=== PATIENT | female | born 1985 | race Hispanic/Latino ===

== ENCOUNTER 2018-02-12 13:53 | Emergency (ER) | payer BC, SELFPAY ==
[2018-02-12] MEDS ORDERED: ONDANSETRON 4 MG/2 ML VIAL ONE (14:39)
[2018-02-12] MEDS ORDERED: NA CHLORIDE 0.9% 1,000 ML ONE (14:39)
[2018-02-12] MEDS ORDERED: MORPHINE 4 MG/ML SYR ONE ×2 (14:39→15:48)
[2018-02-12] MEDS ORDERED: FAMOTIDINE 20 MG/2 ML VIAL IV ONE (14:39)
[2018-02-12 14:53] LABS: Absolute Lymphocytes (CBC) 1.1 K/uL (0.7-4.9); Absolute Monocytes 0.4 K/uL (0.1-1.3); Absolute Neutrophil 4.5 K/uL (1.8-8.0); Basophils % 0.2 % (0-1.3); Eosinophils % 0.2 % (0-4.4); Lymphocytes % 18.5 % (15.3-44.8); MCH 22.4 pg (27.0-35.0); MCV 71.7 fL (80-100); MPV 8.1 fL (7.6-11.3); Monocytes % 6.3 % (3.3-12.3); RBC Red Blood Cell Count 4.47 M/uL (3.86-4.86)
[2018-02-12 15:09] LABS: Bicarbonate 27 mEq/L (21-31); Glucose Level 119 mg/dL (65-120); Lipase 22 U/L (22-51); Potassium 3.9 mEq/L (3.6-5.0); Sodium Level 138 mEq/L (135-145)
[2018-02-12 15:16] LABS: ALT/SGPT 14 IU/L (10-60); AST/SGOT 25 IU/L (10-42); Albumin 4.1 g/dL (3.2-5.5); Alkaline Phosphatase 49 IU/L (42-121); Amylase Level 58 U/L (28-100); BUN Blood Urea Nitrogen 7 mg/dL (6-20); Bilirubin Direct 0.1 mg/dL (0-0.2); Bilirubin Total 0.4 mg/dL (0.3-1.2); Protein, Total 7.5 g/dL (6.0-8.3)
[2018-02-12 18:43] LABS: Urine Blood NEGATIVE (NEG); Urine Glucose NEGATIVE (NEG); Urine Protein NEGATIVE (NEG); Urine pH 6.5 (5.0-7.0)
[2018-02-12 18:44] LABS: Urine Bacteria <20 /HPF (<20); Urine Culture Reflex Order NOT NEEDED; Urine RBC NONE SEEN /HPF (NONE SEEN)
--- NOTE | 2018-02-12 19:02 | RAD REPORT ---
EXAM DESCRIPTION: CT - Abdomen Pelvis W Contrast - 02/12/2018 6:32 pm CLINICAL HISTORY: Right lower quadrant pain, nausea, prior cholecystectomy and gastric bypass COMPARISON: None. TECHNIQUE: Biphasic, helical CT imaging of the abdomen and pelvis was performed following 100 ml non -ionic IV contrast. Oral contrast was given. All CT scans are performed using dose optimization technique as appropriate and may include automated exposure control or mA/KV adjustment according to patient size. FINDINGS: No suspicious findings in the lung bases. No pericardial thickening or effusion. The liver, spleen, and pancreas show no suspicious findings. Cholecystectomy clips are present. No bi liary tree dilatation. Symmetric renal function is seen with no hydronephrosis or suspicious renal mass. No pyelonephritis o r acute renal parenchymal process seen. Urinary bladder is contracted. This limits detail. No bladder calculus seen. Uterus and ovaries show no suspicious findings. Gastric surgical changes are present. No gastric wall thickening, mass or edema. Oral contrast is pre sent in the distal small bowel and right side colon. No appendicitis findings. No free air or pneuma tosis. Free fluid in the cul-de-sac and right adnexa within limits of normal. No hernia, mass or bul ky lymphadenopathy. No adrenal abnormality. No suspicious bony findings. IMPRESSION: No appendicitis or other surgically emergent finding. Free fluid in the cul-de-sac is within physiologic limits, this could potentially be from a small hem orrhagic or leaking ovarian cyst not otherwise evident on this examination. No pyelonephritis or acute process. Cholecystectomy changes are present. Biliary tree within normal limits.
--- NOTE | 2018-02-12 19:12 | EDPHYS ---
Physician Documentation [facility] Name: Jesenia Claire Age: 32 yrs Sex: Female : 1985 Arrival Date: 02/12/2018 Time: 13:55 Bed 8 Private MD: ED Physician Natan Thrasher HPI: 02/12 15:45 This 32 yrs old Female presents to ER via Wheelchair with complaints of tyler Abdominal Pain. 15:45 The patient presents with abdominal pain in the epigastric area, in the upper abdomen. tyler Onset: The symptoms/episode began/occurred 1 day(s) ago. The patient presents to the emergency department with nausea, vomiting, abdominal pain, of the epigastric area, right upper quadrant and left upper quadrant. Onset: The symptoms/episode began/occurred 1 day(s) ago. Possible causes: unknown. The symptoms are aggravated by nothing. The symptoms are alleviated by nothing. Associated signs and symptoms: The patient has no apparent associated signs or symptoms. 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 - Social history:: Smoking status: Patient uses tobacco products, smokes one pack cigarettes per day. - Ebola Screening: : No symptoms or risks identified at this time. - Family history:: not pertinent. ROS: 15:45 Constitutional: Negative for fever, chills, and weight loss, Eyes: Negative for injury, tyler pain, redness, and discharge, ENT: Negative for injury, pain, and discharge, Neck: Negative for injury, pain, and swelling, Cardiovascular: Negative for chest pain, palpitations, and edema, Respiratory: Negative for shortness of breath, cough, wheezing, and pleuritic chest pain, Back: Negative for injury and pain, : Negative for injury, bleeding, discharge, and swelling, MS/Extremity: Negative for injury and deformity, Skin: Negative for injury, rash, and discoloration, Neuro: Negative for headache, weakness, numbness, tingling, and seizure, Psych: Negative for depression, anxiety, suicide ideation, homicidal ideation, and hallucinations, Allergy/Immunology: Negative for hives, rash, and allergies, Endocrine: Negative for neck swelling, polydipsia, polyuria, polyphagia, and marked weight changes, Hematologic/Lymphatic: Negative for swollen nodes, abnormal bleeding, and unusual bruising. 15:45 Abdomen/GI: Positive for abdominal pain, nausea, vomiting, and diarrhea, of the right upper quadrant, left upper quadrant, right lower quadrant and left lower quadrant. Exam: 15:45 Constitutional: This is a well developed, well nourished patient who is awake, alert, tyler and in no acute distress. Head/Face: Normocephalic, atraumatic. Eyes: Pupils equal round and reactive to light, extra-ocular motions intact. Lids and lashes normal. Conjunctiva and sclera are non-icteric and not injected. Cornea within normal limits. Periorbital areas with no swelling, redness, or edema. ENT: Nares patent. No nasal discharge, no septal abnormalities noted. Tympanic membranes are normal and external auditory canals are clear. Oropharynx with no redness, swelling, or masses, exudates, or evidence of obstruction, uvula midline. Mucous membranes moist. Neck: Trachea midline, no thyromegaly or masses palpated, and no cervical lymphadenopathy. Supple, full range of motion without nuchal rigidity, or vertebral point tenderness. No Meningismus. Chest/axilla: Normal chest wall appearance and motion. Nontender with no deformity. No lesions are appreciated. Cardiovascular: Regular rate and rhythm with a normal S1 and S2. No gallops, murmurs, or rubs. Normal PMI, no JVD. No pulse deficits. Respiratory: Lungs have equal breath sounds bilaterally, clear to auscultation and percussion. No rales, rhonchi or wheezes noted. No increased work of breathing, no retractions or nasal flaring. Back: No spinal tenderness. No costovertebral tenderness. Full range of motion. Female : Normal external genitalia. Skin: Warm, dry with normal turgor. Normal color with no rashes, no lesions, and no evidence of cellulitis. MS/ Extremity: Pulses equal, no cyanosis. Neurovascular intact. Full, normal range of motion. Neuro: Awake and alert, GCS 15, oriented to person, place, time, and situation. Cranial nerves II-XII grossly intact. Motor strength 5/5 in all extremities. Sensory grossly intact. Cerebellar exam normal. Normal gait. Psych: Awake, alert, with orientation to person, place and time. Behavior, mood, and affect are within normal limits. 15:45 Abdomen/GI: Inspection: abdomen appears normal, Bowel sounds: normal, Palpation: moderate abdominal tenderness, in all quadrants, Liver: no appreciated palpable abnormalities, Hernia: not appreciated. Vital Signs: 14:22 BP 162 / 103; Pulse 98; Resp 16; Temp 98.4; Pulse Ox 100% on R/A; Weight 86.18 kg; hb Height 5 ft. (152.40 cm); Pain 10/10; 14:45 BP 151 / 92; Pulse 74; Resp 18; Pulse Ox 99% on R/A; sv 15:37 BP 136 / 86; Pulse 69; Resp 17; Pulse Ox 100% on R/A; tw2 16:43 BP 139 / 80; Pulse 62; Resp 18; Pulse Ox 99% ; sv 17:29 BP 132 / 92; Pulse 59; Resp 17; Pulse Ox 100% on R/A; tw2 18:37 BP 156 / 98; Pulse 54; Resp 18; Pulse Ox 99% ; sv 19:40 BP 129 / 89; Pulse 6; Resp 18; Pulse Ox 100% on R/A; Pain 4/10; mg2 14:22 Body Mass Index 37.11 (86.18 kg, 152.40 cm) hb MDM: 14:29 Patient medically screened. [facility] 15:47 Data reviewed: vital signs, nurses notes, lab test result(s), radiologic studies, CT tyler scan, plain films. 02/12 14:30 Order name: Amylase, Serum; Complete Time: 15:34 02/12 14:30 Order name: Basic Metabolic Panel; Complete Time: 15:34 02/12 14:30 Order name: CBC with Diff; Complete Time: 15:34 02/12 14:30 Order name: Creatinine for Radiology; Complete Time: 15:34 02/12 14:30 Order name: Hepatic Function; Complete Time: 15:34 02/12 14:30 Order name: Lipase; Complete Time: 15:34 02/12 14:30 Order name: Urine Microscopic Only; Complete Time: 18:48 02/12 14:32 Order name: IV Saline Lock; Complete Time: 14:44 [facility] 02/12 14:32 Order name: Labs collected and sent; Complete Time: 14:44 [facility] 02/12 14:32 Order name: Urine Dipstick-Ancillary (obtain specimen); Complete Time: 18:11 [facility] 02/12 14:32 Order name: CT Abd/Pelvis - W/Contrast; Complete Time: 19:11 [facility] 02/12 18:03 Order name: Urine Dipstick--Ancillary (enter results); Complete Time: 18:48 ag 02/12 18:03 Order name: Urine --Ancillary (enter results); Complete Time: 18:48 ag Administered Medications: 14:35 Drug: NS 0.9% 1000 ml Route: IV; Rate: 1 bolus; Site: left antecubital; sv 16:00 Follow up: Response: No adverse reaction; IV Status: Completed infusion; IV Intake: tw2 1000ml 14:40 Drug: Zofran 4 mg Route: IVP; Site: left antecubital; tw2 15:00 Follow up: Response: No adverse reaction; Nausea is decreased tw2 14:40 Drug: Pepcid 20 mg Route: IVP; Site: left antecubital; tw2 15:49 Follow up: Response: No adverse reaction tw2 14:42 Drug: morphine 4 mg Route: IVP; Site: left antecubital; tw2 15:00 Follow up: Response: No adverse reaction; Pain is unchanged, physician notified tw2 15:49 Drug: morphine 4 mg Route: IVP; Site: left antecubital; tw2 16:43 Follow up: Response: No adverse reaction sv Disposition: 02/12/18 19:12 Discharged to Home. Impression: Abdominal tenderness, Vomiting, Anemia, unspecified. - Condition is Stable. - Discharge Instructions: Abdominal Pain, Adult, Anemia, Nonspecific, Nausea and Vomiting, Nausea and Vomiting, Digh-hi-Umga, Abdominal Pain, Adult, Ibxw-ki-[id number]. - Prescriptions for Pepcid 20 mg Oral Tablet - take 1 tablet by ORAL route every 12 hours for 10 days; 20 tablet. Tylenol- Codeine #3 300-30 mg Oral Tablet - take 2 tablet by ORAL route every 6 hours As needed; 30 tablet. Zofran 4 mg Oral Tablet - take 1 tablet by ORAL route every 12 hours As needed; 20 tablet. - Medication Reconciliation Form, Thank You Letter, Antibiotic Education, Prescription Opioid Use form. - Follow up: Private Physician; When: 2 - 3 days; Reason: Recheck today's complaints, Continuance of care, Re-evaluation by your physician. - Problem is new. - Symptoms have improved. Signatures: Dispatcher [employer] [facility] Jojo Pro RN RN Natan Cheng MD MD cha Baxter, Heather, RN RN Lora Cho RN RN tw2 Alden Polo RN RN mg2 Corrections: (The following items were deleted from the chart) 14:44 14:30 IV Saline Lock ordered. [facility] 14:44 14:30 Labs collected and sent ordered. [facility] 14:44 14:30 Urine Dipstick-Ancillary ordered. [facility] 15:35 14:32 Creatinine for Radiology+C.LAB.BRZ ordered. [facility] 15:35 14:32 UA MICROSCOPIC+U.LAB.BRZ ordered. [facility] 15:36 14:32 AMYLASE, SERUM+C.LAB.BRZ ordered. [facility] 15:36 14:32 BASIC METABOLIC PANEL+C.LAB.BRZ ordered. [facility] 15:36 14:32 CBC+H.LAB.BRZ ordered. [facility] 15:36 14:32 HEPATIC FUNCTION+C.LAB.BRZ ordered. [facility] 15:36 14:32 LIPASE+C.LAB.BRZ ordered. [facility] 19:44 19:12 02/12/2018 19:12 Discharged to Home. Impression: Abdominal tenderness; Vomiting; mg2 Anemia, unspecified. Condition is Stable. Discharge Instructions: Abdominal Pain, Adult, Anemia, Nonspecific, Nausea and Vomiting, Nausea and Vomiting, Mgej-am-Ugck, Abdominal Pain, Adult, Jnoj-cq-Dqrg. Prescriptions for Pepcid 20 mg Oral Tablet - take 1 tablet by ORAL route every 12 hours for 10 days; 20 tablet, Tylenol-Codeine #3 300-30 mg Oral Tablet - take 2 tablet by ORAL route every 6 hours As needed; 30 tablet, Zofran 4 mg Oral Tablet - take 1 tablet by ORAL route every 12 hours As needed; 20 tablet. and Forms are Medication Reconciliation Form, Thank You Letter, Antibiotic Education, Prescription Opioid Use. Follow up: Private Physician; When: 2 - 3 days; Reason: Recheck today's complaints, Continuance of care, Re-evaluation by your physician. Problem is new. Symptoms have improved. tyler
--- NOTE | 2018-02-12 19:12 | ER ---
Nurse's Notes [facility] Name: Jesenia Claire Age: 32 yrs Sex: Female : 1985 Arrival Date: 02/12/2018 Time: 13:55 Bed 8 Private MD: Diagnosis: Abdominal tenderness;Vomiting;Anemia, unspecified Presentation: 02/12 14:20 Presenting complaint: Patient states: RLQ pain 10/10 and nausea that started yesterday. hb Transition of care: patient was not received from another setting of care. Onset of symptoms was February 11, 2018. Risk Assessment: Do you want to hurt yourself or someone else? Patient reports no desire to harm self or others. 14:20 Method Of Arrival: Wheelchair hb 14:20 Acuity: GAURI 3 hb 14:47 Initial Sepsis Screen: Does the patient meet any 2 criteria? Yes Does the patient have sv a suspected source of infection? No. Patient's initial sepsis screen is negative. Care prior to arrival: None. 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 - Social history:: Smoking status: Patient uses tobacco products, smokes one pack cigarettes per day. - Ebola Screening: : No symptoms or risks identified at this time. - Family history:: not pertinent. Screenin:43 Abuse screen: Denies threats or abuse. Denies injuries from another. Nutritional sv screening: No deficits noted. Tuberculosis screening: No symptoms or risk factors identified. Fall Risk None identified. Assessment: 14:32 General: Appears uncomfortable, Behavior is cooperative, appropriate for age. Pain: sv Complains of pain in right lower quadrant Pain currently is 10 out of 10 on a pain scale. Quality of pain is described as sharp, Pain began 1 day ago. Is continuous, Also complains of nausea. Neuro: Level of Consciousness is awake, alert, obeys commands, Oriented to person, place, time, situation, Moves all extremities. Full function Speech is normal. Respiratory: Respiratory effort is even, unlabored, Respiratory pattern is regular, symmetrical. GI: Abdomen is flat, Last meal was February 11, 2018. at 22:00. Reports nausea, vomiting. Derm: Skin is normal. Musculoskeletal: Range of motion: intact in all extremities. 15:37 Reassessment: Patient and/or family updated on plan of care and expected duration. Pain tw2 level reassessed. Patient is alert, oriented x 3, equal unlabored respirations, skin warm/dry/pink. pt c/o pain, provider notified, pt encouraged to drink at least half of the bottle of contrast Patient states symptoms have not improved. 16:30 Reassessment: Patient and/or family updated on plan of care and expected duration. Pain tw2 level reassessed. Patient is alert, oriented x 3, equal unlabored respirations, skin warm/dry/pink. Patient states symptoms have not improved. 17:29 Reassessment: No changes from previously documented assessment. Patient and/or family tw2 updated on plan of care and expected duration. Pain level reassessed. Patient is alert, oriented x 3, equal unlabored respirations, skin warm/dry/pink. 17:39 Reassessment: CT called per Dr. Thrasher to take patient now for scan. ss 18:36 Reassessment: No changes from previously documented assessment. Patient and/or family sv updated on plan of care and expected duration. Pain level reassessed. Patient is alert, oriented x 3, equal unlabored respirations, skin warm/dry/pink. Pt reports needing pain and nausea medication. Informed Dr Thrasher, will wait to see what CT results are. Vital Signs: 14:22 BP 162 / 103; Pulse 98; Resp 16; Temp 98.4; Pulse Ox 100% on R/A; Weight 86.18 kg; hb Height 5 ft. (152.40 cm); Pain 10/10; 14:45 BP 151 / 92; Pulse 74; Resp 18; Pulse Ox 99% on R/A; sv 15:37 BP 136 / 86; Pulse 69; Resp 17; Pulse Ox 100% on R/A; tw2 16:43 BP 139 / 80; Pulse 62; Resp 18; Pulse Ox 99% ; sv 17:29 BP 132 / 92; Pulse 59; Resp 17; Pulse Ox 100% on R/A; tw2 18:37 BP 156 / 98; Pulse 54; Resp 18; Pulse Ox 99% ; sv 19:40 BP 129 / 89; Pulse 6; Resp 18; Pulse Ox 100% on R/A; Pain 4/10; mg2 14:22 Body Mass Index 37.11 (86.18 kg, 152.40 cm) hb ED Course: 13:55 Patient arrived in ED. as 14:22 Triage completed. hb 14:23 Arm band placed on right wrist. hb 14:29 Natan Thrasher MD is Attending Physician. tyler 14:29 Jojo Pro, RN is Primary Nurse. sv 14:35 Patient has correct armband on for positive identification. Bed in low position. Call sv light in reach. Adult w/ patient. Pulse ox on. NIBP on. Door closed. Warm blanket given. Head of bed elevated. 14:35 Initial lab(s) drawn, by me, sent to lab. Inserted saline lock: 20 gauge in left sv antecubital area, using aseptic technique. Blood collected. Flushed left antecubital with 5 ml normal saline. 18:32 CT Abd/Pelvis - W/Contrast In Process Unspecified. EDMS 19:05 Report given to Twila RUTLEDGE and Marcus RUTLEDGE. sv 19:07 Primary Nurse role handed off by Jojo Pro, AAMIR sv 19:11 Alden Polo, RN is Primary Nurse. mg2 19:42 No provider procedures requiring assistance completed. IV discontinued, intact, mg2 bleeding controlled, No redness/swelling at site. Pressure dressing applied. Administered Medications: 14:35 Drug: NS 0.9% 1000 ml Route: IV; Rate: 1 bolus; Site: left antecubital; sv 16:00 Follow up: Response: No adverse reaction; IV Status: Completed infusion; IV Intake: tw2 1000ml 14:40 Drug: Zofran 4 mg Route: IVP; Site: left antecubital; tw2 15:00 Follow up: Response: No adverse reaction; Nausea is decreased tw2 14:40 Drug: Pepcid 20 mg Route: IVP; Site: left antecubital; tw2 15:49 Follow up: Response: No adverse reaction tw2 14:42 Drug: morphine 4 mg Route: IVP; Site: left antecubital; tw2 15:00 Follow up: Response: No adverse reaction; Pain is unchanged, physician notified tw2 15:49 Drug: morphine 4 mg Route: IVP; Site: left antecubital; tw2 16:43 Follow up: Response: No adverse reaction sv Intake: 16:00 IV: 1000ml; Total: 1000ml. tw2 Outcome: 19:12 Discharge ordered by . tyler 19:43 Discharged to home via wheelchair, with family. mg2 19:43 Condition: stable 19:43 Discharge instructions given to patient, family, Instructed on discharge instructions, follow up and referral plans. Demonstrated understanding of instructions, follow-up care, medications, Prescriptions given X 2. 19:44 Patient left the ED. mg2 Signatures: Dispatcher [employer] EDJojo Rice RN RN Natan Cheng MD MD cha Martinez, Amelia as Smirch, Shelby, RN RN ss Andie Oconnor RN RN Lora Cho RN RN tw2 Alden Polo RN RN mg2 Corrections: (The following items were deleted from the chart) 16:44 16:30 BP 139 / 80; Pulse 61bpm; Resp 17bpm; Pulse Ox 100% RA; tw2 tw2
[2018-02-12 20:47] VITALS: TEMP 98.4
[2018-02-12 20:56] VITALS: BP 129/89; O2SAT 100
== END 2018-02-12 19:44 | disposition home or self-care (01) ==
LOC: ER 13:53
DX: R11.10 Vomiting, unspecified (principal); D64.9 Anemia, unspecified; F17.210 Nicotine dependence, cigarettes, uncomplicated
CPT/HCPCS: 36415; 74177; 80048; 80076; 81003; 81015; 81025; 82150; 83690; 85025; 96361; 96374; 96375; 99284; J2405; J7030; Q9967

== ENCOUNTER 2020-03-09 09:40 | Emergency (ER) | payer SELFPAY, OTHER ==
[2020-03-09] MEDS ORDERED: ONDANSETRON 4 MG (ODT) TAB ONE (10:38)
[2020-03-09] MEDS ORDERED: HYDROCODONE/APAP 5/325 MG TAB ONE (10:38)
--- OUTSIDE RECORDS SUMMARY | 2020-03-09 11:26 | XMS REPORT | Clinical Summary ---
:1985 Author Organization [facility] Address [address] [place] [id number] Care Team Providers Name Role Phone Corinna Oates MD Primary Care Provider [phone] Allergies No Known Allergies Medications Medication Sig Dispensed Refills Start Date End Date Status acetaZOLAMIDE (DIAMOX One tab po qid 90 capsule 6 03/22/2018 Active SEQUELS) 500 mg capsule eletriptan (RELPAX) 20 Take 1 tablet 9 tablet 6 03/22/2018 Active MG tablet (20 mg total) by mouth once as needed for migraine. May repeat in 2 hours if unresolved. Do not exceed 80 mg in 24 hours. acetaZOLAMIDE (DIAMOX) Two bid 120 capsule 6 03/22/2018 Active 500 mg capsule Active Problems No known active problems Family History Medical History Relation Name Comments Sickle cell anemia Brother No Known Problems Father No Known Problems Mother Pancreatitis Sister Relation Name Status Comments Brother Father Alive Mother Alive Sister Social History Tobacco Use Types Packs/Day Years Used Date Never Assessed Sex Assigned at Date Recorded Not on file Job Start Date Occupation Industry Not on file Not on file Not on file Travel History Travel Start Travel End No recent travel history available. 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
--- OUTSIDE RECORDS SUMMARY | 2020-03-09 11:26 | XMS REPORT | Summary of Care ---
:1985 Author Organization [facility] Address [address] [place] [id number] Care Team Providers Name Role Phone Britton Hernandez [employer]RB[employer]ENEWAL MANAGER Primary Care Provider Reason for Visit Reason Comments Refill Request Encounter Details Date Type Department Care Team Description 01/06/2020 Refill [facility] Marika Solis, Refill Request [address] [facility] [place] [address] [phone] [place], [place] [address] [phone] Allergies No Known Allergiesdocumented as of this encounter (statuses as of 01/09/2020) Medications Medication Sig Dispensed Refills Start Date End Date Status acetaZOLAMIDE (DIAMOX Take 500 mg by 0 Active SEQUELS) 500 mg mouth 2 (two) capsuleIndications: times daily. Facial abscess MULTIVITAMIN Take by mouth. 0 A ctive ORALIndications: Facial abscess cyanocobalamin, vitamin Inject as 0 Active B-12, (B-12 COMPLIANCE directed weekly. INJECTION) NaCl 0.9% (NS) SolP 250 by IV Infusion 0 Active mL with iron sucrose route once now. 100 mg iron/5 mL Indications: SolnIndications: every every 3 months 3 months for anemia for anemia norethindrone 0.35 mg Take 1 tablet by 1 Package 2 05/20/2019 Active tabletIndications: mouth daily. Encounter for other contraceptive management ACYCLOVIR 400 mg TAKE 1 TABLET BY 21 tablet 0 07/22/2019 Active tabletIndications: MOUTH THREE TIMES Herpetic vulvovaginitis DAILY FOR 7 DAYS documented as of this encounter (statuses as of 01/09/2020) Active Problems Problem Noted Date Other secondary hypertension 05/20/2019 Overview: Intracranial hypertension currently on d iamox Well woman exam 05/20/2019 Contraceptive management 05/20/2019 Abnormal uterine bleeding 05/20/2019 Overview: Iron infusion q3 months History of anxiety 05/20/2019 Tobacco use disorder 05/20/2019 Pseudotumor cerebri syndrome 06/25/2017 Obesity, Class III, BMI 40-49.9 (morbid obesity) 06/25 documented as of this encounter (statuses as of 01/09/2020) Immunizations Name Administration Dates Next Due Meningococcal Vaccine 02/29/2012 Tdap 03/05/2010 documented as of this encounter Social History Tobacco Use Types Packs/Day Years Used Date Current Every Day Smoker Cigarettes 1 Sta rted: 05/20/2017 Smokeless Tobacco: Never Used Alcohol Use Drinks/Week oz/Week Comments Not Currently Sex Assigned at Date Recorded Not on file Job Start Date Occupation Industry Not on file Not on file Not on file Travel History Travel Start Travel End No recent travel history available. documented as of this encounter Last Filed Vital Signs Not on filedocumented in this encounter Plan of Treatment Health Maintenance Due Date Last Done Comments VARICELLA VACCINES (1 of 2 - 1984 2-dose childhood series) PNEUMOCOCCAL 0-64 YEARS 1989 COMBINED SERIES (1 of 1 - PPSV23) DTaP,Tdap,and Td Vaccines (2 03/05/2020 03/05/2010 - Td) INFLUENZA VACCINE (Season 06/20/2020 Postpo mona from 05/05/2020 Ended) (Refused) PAP SMEAR 06/20/2022 06/20/2019, 04/04/2017 documented as of this encounter Results Not on filedocumented in this encounter Visit Diagnoses Diagnosis Vaginal itching Pruritus of genital organs documented in this encounter Insurance Payer Benefit Plan Subscriber ID Effective Phone Address Typ e / Group Dates [facility] [place] [id number] xxxxxxxxx 2019-Prese [phone] Medicaid WOMEN nt [address] [place] [address] documented as of this encounter Advance Directives Name Relationship Healthcare Agent Relationship Co mmunication Iveth Navarrete Mother [facility] agent ([place])
--- OUTSIDE RECORDS SUMMARY | 2020-03-09 11:26 | XMS REPORT | Continuity of Care Document ---
:1985 Author Organization [facility] t Address [address] [place] [address] Care Team Providers Name Role Phone Иван BRADLEY Primary Care Physician Jose C Castorena Attending Clinician Problems This patient has no known problems. Allergies, Adverse Reactions, Alerts This patient has no known allergies or adverse reactions. Family History Family Member Diagnosis Comments Start Date Stop Date Source Natural brother Sickle cell anemia H yomi Catholic Natural father No Known Problems Gail Bowden Natural mother No Known Problems Gail Bowden Natural sister [facility] Social History Social Habit Start Date Stop Date Quantity Comments Source Sex Assigned At Gail Bowden Medications Ordered Filled Start Stop Current Ordering Indication Dosage Frequency Signature Comments Components Source Medication Medication Date Date Medication? Clinician (SIG) Name Name acetaZOLAMI Yes One tab po Montiel ANASTACIA (DIAMOX 7-19 qid Methodi SEQUELS) 00:00: st 500 mg 00 capsule eletriptan Yes 20mg Take 1 [place] on (RELPAX) 20 7-19 tablet (20 Me thodi MG tablet 00:00: mg total) st 00 by mouth once as needed for migraine. May repeat in 2 hours if unresolved . Do not exceed 80 mg in 24 hours. acetaZOLAMI Yes Two bid Gail jhon DE (DIAMOX) 7-19 Methodi 500 mg 00:00: st capsule 00 Procedures This patient has no known procedures. Plan of Care Planned Activity Planned Date Details Comments Source Future Scheduled 2020-04-04 INFLUENZA VACCINE [place] [facility] Test 00:00:00 [code = INFLUENZA VACCINE] Future Scheduled 2004 Screening for Montiel Me [facility] Test 00:00:00 malignant neoplasm of cervix (procedure) [code = 858800529] Encounters Start End Encounter Admission Attending Care Care Encounter Source Date/Time Date/Time Type Type Clinicians Facility Department ID 2020-03-09 2020-03-09 [facility] [id number] 00:00:00 00:00:00 Marika Woodall SPORTS STATISTICIAN [id number] REGIONAL [id number] MATERNAL [id number] & CHILD [address] [place] [address] Results This patient has no known results.
--- OUTSIDE RECORDS SUMMARY | 2020-03-09 11:27 | XMS REPORT | Summary of Care ---
:1985 Author Organization [facility] Address [address] [place] [address] Care Team Providers Name Role Phone Britton Hernandez Primary Care Provider Reason for Visit Reason Comments Appointment Encounter Details Date Type Department Care Team Description 03/03/2020 Telephone [facility]- A Britton Jonas FNP Appointment [address] [facility] [address] [place] [address] [place] [address] [phone] Allergies No Known Allergiesdocumented as of this encounter (statuses as of 03/03/2020) Medications Medication Sig Dispensed Refills Start Date [...] TAKE 1 TABLET BY 21 tablet 0 03/03/2020 Active tabletIndications: MOUTH THREE TIMES Herpetic vulvovaginitis DAILY FOR 7 DAYS documented as of this encounter (statuses as of 03/03/2020) Active Problems Problem Noted Date Other secondary hypertension 05/20/2019 Overview: Intracranial hypertension currently on d iamox Well woman exam 05/20/2019 Contraceptive management 05/20/2019 Abnormal uterine bleeding 05/20/2019 Overview: Iron infusion q3 months History of anxiety 05/20/2019 Tobacco use disorder 05/20/2019 Pseudotumor cerebri syndrome 06/25/2017 Obesity, Class III, BMI 40-49.9 (morbid obesity) 06/25 documented as of this encounter (statuses as of 03/03/2020) Immunizations Name Administration Dates Next Due Meningococcal Vaccine 02/29/2012 TDAP 03/05/2010 documented as of this encounter Social [...] filedocumented in this encounter Plan of Treatment Date Type Specialty Care Team Description 03/05/2020 Office Visit [facility] Satell[facility] [address] [place], [place] [address] [phone] Health Maintenance Due Date Last Done Comments VARICELLA VACCINES (1 of 2 - 1984 2-dose childhood series) PNEUMOCOCCAL 0-64 YEARS 1989 COMBINED SERIES (1 of 1 - PPSV23) DTaP,Tdap,and Td Vaccines (2 03/05/2020 03/05/2010 - Td) Depression Screening 06/20/2020 06/20/2019, 05/20/2019 INFLUENZA VACCINE (Season 06/20/2020 Postpo mona from 05/05/2020 Ended) (Refused) PAP SMEAR 06/20/2022 06/20/2019, 04/04/2017 documented as of this encounter Results Not on filedocumented in this encounter Insurance Payer Benefit Plan Subscriber ID Effective Phone Address Typ e / Group Dates [facility] xxxxxxxxx 2019-Prese [phone] [address] Medicaid WOMEN nt [address] [place] [address] documented as of this encounter Advance Directives Name Relationship Healthcare Agent Relationship Co mmunication Iveth Navarrete Mother First [facility] agent (Mobile)
--- OUTSIDE RECORDS SUMMARY | 2020-03-09 11:27 | XMS REPORT | Summary of Care ---
:1985 Author Organization [facility] Address [address] [place] [address] Care Team Providers Name Role Phone Britton Hernandez SWAMPER Primary Care Provider Reason for Visit Reason Comments Refill Request Encounter Details Date Type Department Care Team Description 01/25/2020 Refill [facility]- A Marika Solis, Refill Request [address] [facility] [place] [address] [address] [phone] [place], [place] [address] [phone] Allergies No Known Allergiesdocumented as of this encounter (statuses as of 01/28/2020) Medications Medication Sig Dispensed Refills Start Date End Date Status acetaZOLAMIDE Take 500 mg by 0 A ctive (DIAMOX SEQUELS) 500 mouth 2 (two) mg times daily. capsuleIndications: Facial abscess MULTIVITAMIN Take by 0 Active ORALIndications: mouth. Facial abscess cyanocobalamin, Inject as 0 Act lesley vitamin B-12, (B-12 directed COMPLIANCE weekly. INJECTION) NaCl 0.9% (NS) SolP by IV Infusion 0 Active 250 mL with iron route once sucrose 100 mg now. iron/5 mL Indications: SolnIndications: every 3 months every 3 months for for anemia anemia norethindrone 0.35 Take 1 tablet 1 Package 2 05/20/2019 Active mg by mouth tabletIndications: daily. Encounter for other contraceptive management ACYCLOVIR 400 mg TAKE 1 TABLET 21 tablet 0 01/28/2020 Active tabletIndications: BY MOUTH THREE Herpetic TIMES DAILY vulvovaginitis FOR 7 DAYS ACYCLOVIR 400 mg TAKE 1 TABLET 21 tablet 0 07/22/2019 01/28/20 2 Discontinued tabletIndications: BY MOUTH THREE 0 Herpetic TIMES DAILY vulvovaginitis FOR 7 DAYS documented as of this encounter (statuses as of 01/28/2020) Active Problems Problem Noted Date Other secondary hypertension 05/20/2019 Overview: Intracranial hypertension currently on d iamox Well woman exam 05/20/2019 Contraceptive management 05/20/2019 Abnormal uterine bleeding 05/20/2019 Overview: Iron infusion q3 months History of anxiety 05/20/2019 Tobacco use disorder 05/20/2019 Pseudotumor cerebri syndrome 06/25/2017 Obesity, Class III, BMI 40-49.9 (morbid obesity) 06/25 documented as of this encounter (statuses as of 01/28/2020) Immunizations Name Administration Dates Next Due Meningococcal [...] filedocumented in this encounter Visit Diagnoses Diagnosis Herpetic vulvovaginitis documented in this encounter Insurance Payer Benefit Plan Subscriber ID Effective Phone Address Typ e / Group Dates [facility] xxxxxxxxx 2019-Prese [phone] [address] Medicaid [place]OMEN nt [id number] [place] [address] documented as of this encounter Advance Directives Name Relationship Healthcare Agent Relationship Co mmunication Iveth Navarrete Mother First [facility] agent (Mobile)
--- OUTSIDE RECORDS SUMMARY | 2020-03-09 11:27 | XMS REPORT | Summary of Care ---
:1985 Author Organization [facility] Address [address] [place] [address] Care Team Providers Name Role Phone Britton Hernandez COLOR MAKER DYER Primary Care Provider Reason for Visit Reason Comments CONTROL Encounter Details Date Type Department Care Team Description 03/05/2020 Office Visit [facility] RMCHP- AkinsiGary carrollMarika Enc ounter for other contraceptive management (Primary Dx); Mike C, WHCNP Vaginal discharge; [address] [facility] [address] Screen for STD (sexually transmitted dis ease) [facility] [place], [place] [phone] Allergies No Known Allergiesdocumented as of this encounter (statuses as of 03/06/2020) Medications Medication Sig Dispensed Refills Start Date [...] as of this encounter (statuses as of 03/06/2020) Active Problems Problem Noted Date Other secondary hypertension 05/20/2019 Overview: Intracranial hypertension currently on d iamox Well woman exam 05/20/2019 Contraceptive management 05/20/2019 Abnormal uterine bleeding 05/20/2019 Overview: Iron infusion q3 months History of anxiety 05/20/2019 Tobacco use disorder 05/20/2019 Pseudotumor cerebri syndrome 06/25/2017 Obesity, Class III, BMI 40-49.9 (morbid obesity) 06/25 documented as of this encounter (statuses as of 03/06/2020) Immunizations Name Administration Dates Next Due Meningococcal [...] of this encounter Last Filed Vital Signs Vital Sign Reading Time Taken Comments Blood Pressure 134/81 03/05/2020 4:09 PM CDT Pulse 79 03/05/2020 4:09 PM CDT Temperature 36.6 C (97.9 F) 03/05/2020 4:09 PM CDT Respiratory Rate 16 03/05/2020 4:09 PM CDT Oxygen Saturation - - Inhaled Oxygen Concentration - - Weight 74.8 kg (164 lb 14.4 oz) 03/05/2020 4:09 PM CDT Height 152.4 cm (5') 03/05/2020 4:09 PM CDT Body Mass Index 32.2 03/05/2020 4:09 PM CDT documented in this encounter Progress Notes Marika Patel, WHAUGUSTIN - 03/05/2020 3:45 PM CDT Chief complaint: Chief Complaint Patient presents with CONTROL HPI: the patient is here today with reports of vaginal discharge x1 week. She reports she used monistat otc for 1 day on last week , and reports her symptoms have improved but reports she noticed discharge on this morning. She denies all other associated symptoms today. She reports a new partner that she has been with for the past 6 months and she desires STI testing today. She reports her lmp as 6-3-20. Histories OB History Para Term AB Living 4 3 2 1 1 3 SAB TAB Ectopic Multiple Live Births 1 3 # Outcome Date GA Lbr Luke/2nd Weight Sex Delivery Anes PTL Lv 4 SAB 07/06/12 6w0d 3 Term 03/30/06 37w0d 5 lb 13 oz (2.637 kg) F Vag-Spont DAVID 2 07/13/04 32w0d 6 lb (2.722 kg) F DAVID 1 Term 10/26/01 36w0d 7 lb 2 oz (3.232 kg) M Vag-Spont DAVID Past Medical History: Diagnosis Date Abnormal uterine bleeding 2013 D&c x2, and many blood transfusions Anemia 2013 On iron infusions [id number] by Dr. Torres Anxiety 2006 Not on meds, followed Dr. Grullon Depression 2006 Not on meds, does not have MD HPV (human papilloma virus) infection 2012 Resolved per pt report Intracranial hypertension 2012 not on meds Other secondary hypertension 05/20/2019 Pap smear abnormality of cervix 2003 Dysplasia 2 Transfusion history 2012, 2013,2015 Urinary incontinence 2004 not on meds Family History Problem Relation Age of Onset Diabetes Mother Asthma Father High cholesterol Father Hypertension Father Arthritis Maternal Grandmother Heart Maternal Grandmother Diabetes Maternal Grandfather Family Status Relation Name Status Mo Alive Fa Alive MGMo Alive MGFa Alive Past Surgical History: Procedure Laterality Date ABDOMEN SURGERY PROC UNLISTED 2013 Gastric Bypass CHOLECYSTECTOMY 2013 COLPOSCOPY 2003 CONIZATION CERVIX,LOOP ELECTRD 2003 DILATION AND CURETTAGE (SHX) 2013 x2 for AUB GASTRIC BYPASS,OBESE<100CM ARIAN-EN-Y 2013 Social History Socioeconomic History Marital status: Spouse name: Not on file Number of children: Not on file Years of education: Not on file Highest education level: Not on file Occupational History Not on file Social Needs Financial resource strain: Not on file Food insecurity: Worry: Not on file Inability: Not on file Transportation needs: Medical: Not on file Non-medical: Not on file Tobacco Use Smoking status: Current Every Day Smoker Packs/day: 1.00 Types: Cigarettes Start date: 05/20/2017 Smokeless tobacco: Never Used Substance and Sexual Activity Alcohol use: Not Currently Drug use: Never Sexual activity: Not Currently Partners: Male control/protection: None Comment: Last intercourse 12/26/2018 Lifestyle Physical activity: Days per week: Not on file Minutes per session: Not on file Stress: Not on file Relationships Social connections: Talks on phone: Not on file Gets together: Not on file Attends mandaeism service: Not on file Active member of club or organization: Not on file Attends meetings of clubs or organizations: Not on file Relationship status: Not on file Intimate partner violence: Fear of current or ex partner: Not on file Emotionally abused: Not on file Physically abused: Not on file Forced sexual activity: Not on file Other Topics Concern Not on file Social History Narrative Patient lives with children, patient feels safe at home. Social History Substance and Sexual Activity Sexual Activity Not Currently Partners: Male control/protection: None Comment: Last intercourse 12/26/2018 Labs Labs are pending. Radiology No new radiology. Allergies Jesenia has No Known Allergies. Medications Jesenia has a current medication list which includes the following prescription(s): acyclovir, cyanocobalamin (vitamin b-12), NaCl 0.9% (NS) SolP 250 mL with iron sucrose 100 mg iron/5 mL Soln, norethindrone, acetazolamide, and multivitamin. Review of Systems Constitutional: Negative. HENT: Negative. Eyes: Negative. Respiratory: Negative. Breasts: Negative. Cardiovascular: Negative. Gastrointestinal: Negative. Genitourinary: Negative. Musculoskeletal: Negative. Skin: Negative. Neurological: Negative. Psychiatric/Behavioral: Negative. Endocrine: Endocrine negative BP 134/81 (BP Location: Right arm, Patient Position: Sitting, BP CUFF SIZE: Adult Medium) | Pulse 79 | Temp 36.6 C (97.9 F) (Oral) | Resp 16 | Ht 5' (1.524 m) | Wt 164 lb 14.4 oz (74.8 kg) | LMP 02/05/2020 (Exact Date) | BMI 32.20 kg/m Pregravid BMI: Could not be calculated Physical Exam Vitals reviewed. Constitutional: She is oriented to person, place, and time. She appears well- developed and well-nourished. Her body habitus is normal. Cardiovascular: Regular rate and rhythm. Pulmonary/Chest: Normal inspiratory effort. Neuro/Psychiatric: She has a normal mood and affect. She is oriented to person, place, and time. External genitalia: Normal external genitalia appropriate for age. Normal hair distribution. No labial lesion. Urethral meatus: Normal urethral meatus size, location and no lesion. No prolapse present. Normal urethral meatus Urethra: Normal urethra. No urethral tenderness, no mass and no urethral scarring palpated. Bladder: Bladder has no fullness, no mass palpated and no tenderness. Normal bladder Vagina:No lesion inspected. Normal estrogen effect. Normal support. Vaginal discharge found. Scant blood noted in vaginal canal Cervix: Normal cervix. No lesion. No tenderness and no discharge present. Uterus: Uterus is normal size, normal contour, normal position and non-tender. Normal uterus Adnexa: Right adnexa without tenderness, ovary enlargement or mass. Left adnexa without tenderness, ovary enlargement or mass. Normal left adnexa and normal right adnexa Assessment/Plan Return to clinic in 1 weeks. for nexplanon insert Return to clinic in 8 weeks for WWE or sooner as needed Encounter for other contraceptive management (primary encounter diagnosis) Comment: desires nexplanon Plan: return in 1 week Vaginal discharge Comment: as ordered Plan: POCT TEST, POCT URINALYSIS W/O SPECIFIC GRAVITY, GALV ONLY - VAGINAL PATHOGENS BY DNA PROBE, GC & CHLAMYDIA AMPLIFIED ASSAY Screen for STD (sexually transmitted disease) Comment: future ordered Plan: HIV 1/2 AG-AB WITH REFLEX This visit did not involve counseling and coordination that comprised more than 50% of the visit time. MARISA Jorge 03/05/2020 4:29 PM documented in this encounter Plan of Treatment Date Type Specialty Care Team Description 03/16/2020 Office Visit OB Gini Williamson WHCNP [address] [place], [place] [address] [phone] 05/22/2020 Office Visit OB Gini Williamson WHCNP [address] [place], [place] [address] [phone] Name Type Priority Associated Diagnoses Date/Ti me GALV ONLY - VAGINAL LAB Routine Vaginal discharge 10/2019 4:46 PM CDT PATHOGENS BY DNA PROBE GC & CHLAMYDIA AMPLIFIED LAB Routine Vaginal discharg e 03/05/2020 4:46 PM CDT ASSAY Name Type Priority Associated Diagnoses Order S chedule HIV 1/2 AG-AB WITH LAB Routine Screen for STD (sexual ly Expected: 03/09/2020, REFLEX transmitted disease) Expires : 03/05/2021 Health Maintenance Due Date Last Done Comments VARICELLA VACCINES (1 of 2 - 1984 2-dose childhood series) PNEUMOCOCCAL 0-64 YEARS 1989 COMBINED SERIES (1 of 1 - PPSV23) DTaP,Tdap,and Td Vaccines (2 03/05/2020 03/05/2010 - Td) Depression Screening 06/20/2020 06/20/2019, 05/20/2019 INFLUENZA VACCINE (#1) 2020 Postponed from 05/05/2020 (Refused) PAP SMEAR 06/20/2022 06/20/2019, 04/04/2017 documented as of this encounter Procedures Procedure Name Priority Date/Time Associated Diagnosis Comme nts POCT URINALYSIS W/O Routine 03/05/2020 Vaginal discharge Res ults for this SPECIFIC GRAVITY procedure a re in the results section . POCT TEST Routine 03/05/2020 Vaginal discharge Res ults for this procedure are i n the results section . documented in this encounter Results POCT URINALYSIS W/O SPECIFIC GRAVITY (03/05/2020) Pathologist Sig nature POCT PH U 5 5 - 8 mg/dl POCT U LEUK EST 2+ Negative - Negative POCT U NIT neg Negative - Negative POCT U PROT 30 Negative - Negative POCT U GLU normal Negative - Negative POCT U KETONE large Negative - Negative POCT U BLD 250 Negative - Negative Specimen Urine - URINE, CLEAN CATCH POCT TEST (03/05/2020) Pathologist Sig nature POCT PREG Negative On board controls acceptable Yes with C Line POCT PREG LOT # POCT PREG TEST DATE Specimen Urine - URINE, CLEAN CATCH documented in this encounter Visit Diagnoses Diagnosis Encounter for other contraceptive manage ment - Primary Vaginal discharge Leukorrhea, not specified as infective Screen for STD (sexually transmitted dis ease) Screening examination for venereal disea se documented in this encounter Insurance Payer Benefit Plan Subscriber ID Effective Phone Address Typ e / Group Dates [facility] xxxxxxxxx 2019-Prese [phone] [address] Medicaid WOMEN nt [address] [place] [address] documented as of this encounter Advance Directives Name Relationship Healthcare Agent Relationship Co mmunication Iveth Navarrete Mother First [facility] agent (Mobile) "
--- OUTSIDE RECORDS SUMMARY | 2020-03-09 11:27 | XMS REPORT | Summary of Care ---
:1985 Author Organization [facility] Address [address] [place] [address] Care Team Providers Name Role Phone Britton Hernandez GRID TRIMMER Primary Care Provider Reason for Visit Reason Comments Refill Request Encounter Details Date Type Department Care Team Description 03/03/2020 Refill [facility] RM[facility]P- A Marika Solis, Refill Request [address] [place] [address] [phone] [place], [place] [address] [phone] Allergies No Known Allergiesdocumented as of this [...] mg TAKE 1 TABLET 21 tablet 0 03/03/2020 Active tabletIndications: BY MOUTH THREE Herpetic TIMES DAILY vulvovaginitis FOR 7 DAYS ACYCLOVIR 400 mg TAKE 1 TABLET 21 tablet 0 01/28/2020 03/03/20 2 Discontinued tabletIndications: BY MOUTH THREE 0 [...] Diagnosis Vaginal itching Pruritus of genital organs Herpetic vulvovaginitis documented in this encounter Insurance Payer Benefit Plan Subscriber ID Effective Phone Address Typ e / Group Dates [facility] [place] [facility] xxxxxxxxx 2019-Prese [phone] [address] Medicaid WOMEN nt [address] [place] [address] documented as of this encounter Advance Directives Name Relationship Healthcare Agent Relationship Co mmunication Iveth Navarrete Mother [facility] agent (Mobile)
--- OUTSIDE RECORDS SUMMARY | 2020-03-09 11:27 | XMS REPORT | Summary of Care ---
:[address] [facility] Address [address] [place] [address] Care Team Providers Name Role Phone Britton Hernandez ESCROW MANAGER Primary Care Provider Reason for Visit Reason Comments Refill Request Encounter Details Date Type Department Care Team Description 02/14/2020 Refill [facility] RMCHP- A Marika Solis, Refill Request [address] [place] [address] [phone] [place], [place] [address] [phone] Allergies No Known Allergiesdocumented as of this encounter (statuses as of 02/17/2020) Medications Medication Sig Dispensed Refills Start Date [...] TAKE 1 TABLET BY 21 tablet 0 01/28/2020 Active tabletIndications: MOUTH THREE TIMES Herpetic vulvovaginitis DAILY FOR 7 DAYS documented as of this encounter (statuses as of 02/17/2020) Active Problems Problem Noted Date Other secondary hypertension 05/20/2019 Overview: Intracranial hypertension currently on d iamox Well woman exam 05/20/2019 Contraceptive management 05/20/2019 Abnormal uterine bleeding 05/20/2019 Overview: Iron infusion q3 months History of anxiety 05/20/2019 Tobacco use disorder 05/20/2019 Pseudotumor cerebri syndrome 06/25/2017 Obesity, Class III, BMI 40-49.9 (morbid obesity) 06/25 documented as of this encounter (statuses as of 02/17/2020) Immunizations Name Administration Dates Next Due Meningococcal [...] Typ e / Group Dates [facility] [place] [facility] xxxxxxxxx 2019-Prese [phone] [address] Medicaid WOMEN nt [address] [place] [address] documented as of this encounter Advance Directives Name Relationship Healthcare Agent Relationship Co mmunication Iveth Navarrete Mother First [facility] [phone] agent (Mobile) ([place])
--- OUTSIDE RECORDS SUMMARY | 2020-03-09 11:28 | XMS REPORT | Summary of Care ---
:1985 Author Organization [facility] Address [address] [place] [address] Care Team Providers Name Role Phone Britton Hernandez OUTSIDE INDUSTRIAL SALES REPRESENTATIVE Primary Care Provider Reason for Visit Reason Comments CONTROL Encounter Details Date Type Department Care Team Description 03/05/2020 Office Visit [facility] RMCHP- AkinsiGary carrollMarika Enc ounter for other contraceptive management (Primary Dx); Mike C, WHCNP Vaginal discharge; [address] [place] [address] [facility] [address] Screen for STD (sexually transmitted dis ease) [facility] [place], [place] [phone] Allergies No Known Allergiesdocumented as of this [...] blood transfusions Anemia 2013 On iron infusions [id number] by Dr. Torres Anxiety 2006 Not on [...] file Gets together: Not on file Attends confucianism service: Not on file Active member of [...] Visit OB Gini Williamson WHCNP [address] [place], [place] [address] [phone] 05/22/2020 Office Visit OB Gini Williamson WHCNP [address] [place], [place] [address] [phone] Name Type Priority Associated Diagnoses Date/Ti me [...] Address Typ e / Group Dates [facility] xxxxxxxxx 2019-Prese [phone] [address] Medicaid WOMEN nt [address] [place] [address] documented as of this encounter Advance Directives Name Relationship Healthcare Agent Relationship Co mmunication Iveth Navarrete Mother First [facility] agent (Mobile) "
--- NOTE | 2020-03-09 11:52 | ER ---
Nurse's Notes [facility] Name: Jesenia Claire Age: 34 yrs Sex: Female : 1985 Arrival Date: 03/09/2020 Time: 09:43 Bed 20 Private MD: Diagnosis: Viral infection, unspecified Presentation: 03/09 09:51 Chief complaint: Patient states: VELAZQUEZ, CHILLS, FEVER, AND MYALGIA x2 DAYS. Coronavirus bp screen: Patient denies a cough. Patient denies shortness of breath or difficulty breathing. Patient reports a measured and/or subjective temperature greater than 100.4F. Patient reports travel on a cruise ship or to a country the [facility] currently lists as an affected area. Patient reports contact with known and/or suspected case of COVID-19. Coronavirus screen: Surgical mask placed on patient. Patient moved to private room, placed in contact and droplet isolation with eye protection until further assessment. Ebola Screen: No symptoms or risks identified at this time. Initial Sepsis Screen: Does the patient meet any 2 criteria? No. Patient's initial sepsis screen is negative. Does the patient have a suspected source of infection? No. Patient's initial sepsis screen is negative. Risk Assessment: Do you want to hurt yourself or someone else? Patient reports no desire to harm self or others. Onset of symptoms is unknown. 09:51 Method Of Arrival: Ambulatory bp 09:51 Acuity: GAURI 4 bp Triage Assessment: 09:52 General: Appears distressed, uncomfortable, ill, Behavior is calm, cooperative, bp appropriate for age. Pain: Denies pain. EENT: No deficits noted. Neuro: No deficits noted. Cardiovascular: Rhythm is sinus rhythm. Respiratory: No deficits noted. GI: No signs and/or symptoms were reported involving the gastrointestinal system. : No signs and/or symptoms were reported regarding the genitourinary system. Derm: No deficits noted. Musculoskeletal: No deficits noted. 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 - Social history:: Smoking status: Patient denies any tobacco usage or history of. Screenin:55 Abuse screen: Denies threats or abuse. Denies injuries from another. Nutritional bp screening: No deficits noted. Tuberculosis screening: No symptoms or risk factors identified. Fall Risk None identified. Assessment: 09:55 General: SEE TRIAGE NOTE. bp 12:21 Reassessment: PT D/C HOME AMBULATORY WITH FAMILY, DX WITH VIRAL URI. dm5 Vital Signs: 09:51 BP 115 / 75; Pulse 78; Resp 17; Temp 99.3; Pulse Ox 99% ; Weight 72.57 kg; Height 5 ft. bp (152.40 cm); 12:21 BP 119 / 69; Pulse 74; Resp 17; Temp 99.5; Pulse Ox 99% ; dm5 09:51 Body Mass Index 31.25 (72.57 kg, 152.40 cm) bp ED Course: 09:43 Patient arrived in ED. as 09:46 Anthony Vanegas, AAMIR is Primary Nurse. bp 09:52 Triage completed. bp 09:52 Arm band placed on. bp 09:55 Patient has correct armband on for positive identification. bp 10:01 Collin Malagon NP is PHCP. pm1 10:01 Natan Thrasher MD is Attending Physician. pm1 12:21 No provider procedures requiring assistance completed. Patient did not have IV access dm5 during this emergency room visit. Administered Medications: 10:30 Drug: Ondansetron (Zofran) 4 mg Route: PO; bp 12:22 Follow up: Response: Pain is decreased dm5 10:30 Drug: [place] 5 mg-325 mg 1 tabs Route: PO; bp 12:22 Follow up: Response: Pain is decreased dm5 Outcome: 11:52 Discharge ordered by MD. pm1 12:21 Discharged to home ambulatory. dm5 12:21 Condition: stable 12:21 Discharge instructions given to patient, Instructed on discharge instructions, follow up and referral plans. medication usage, Demonstrated understanding of instructions, follow-up care, medications, Prescriptions given X 2. 12:22 Patient left the ED. dm5 Addendum: 03/11/2020 18:03 Addendum: COVID-19 Result: Positive result giiven to ED physician to notify pt. h b Physician: Ladarius Jones MD Physician was able to contact pt and pt was notified of positive COVID-19 swab result. Physician answered pt questions. Signatures: Radha Castillo RN RN dm5 Daphney Harding as Collin Malagon, CONSUMER LENDER CONSUMER LENDER pm1 Andie Oconnor, AAMIR RN hb Anthony Vanegas RN RN bp Corrections: (The following items were deleted from the chart) 18:32 18:03 Addendum: COVID-19 Result: Positive result giiven to ED physician to notify pt. Physician: Ladarius Jones MD
--- NOTE | 2020-03-09 11:53 | EDPHYS ---
Physician Documentation [facility] Name: Jesenia Claire Age: 34 yrs Sex: Female : 1985 Arrival Date: 03/09/2020 Time: 09:43 Bed 20 Private MD: SHIRLEY Physician Natan Thrasher HPI: 03/09 10:32 This 34 yrs old Female presents to ER via Ambulatory with complaints of r/o pm1 covid. 10:32 The patient complains of pain to the forehead. The patient describes the headache as pm1 aching. Onset: The symptoms/episode began/occurred 2 day(s) ago. Associated signs and symptoms: Pertinent positives: fever, nausea, Body aches, Pertinent negatives: neck stiffness, paresthesias, Photophobia rash, sinus congestion, sinus tenderness, vision changes, vomiting, weakness, Diarrhea, cough, shortness of breath, chest pain. The symptoms are alleviated by nothing. the symptoms are aggravated by nothing. The patient has not experienced similar symptoms in the past. Patient's boyfriend with cough, fever, congestion, shortness of breath, and diarrhea onset Monday. The next day her symptoms of headache, fever, body aches, chills, and nausea started. 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 - Social history:: Smoking status: Patient denies any tobacco usage or history of. ROS: 10:32 Eyes: Negative for injury, pain, redness, and discharge. pm1 10:32 ENT: Negative for injury, pain, and discharge, Neck: Negative for injury, pain, and swelling, Cardiovascular: Negative for chest pain, palpitations, and edema, Respiratory: Negative for shortness of breath, cough, wheezing, and pleuritic chest pain. 10:32 Back: Negative for injury and pain, : Negative for injury, bleeding, discharge, and swelling, MS/Extremity: Negative for injury and deformity, Skin: Negative for injury, rash, and discoloration. 10:32 Constitutional: Positive for body aches, fever, Negative for poor PO intake. 10:32 Abdomen/GI: Positive for nausea, Negative for abdominal pain, vomiting, diarrhea, constipation. 10:32 Neuro: Positive for headache, Negative for dizziness, numbness, tingling, visual changes, weakness. Exam: 10:32 Constitutional: This is a well developed, well nourished patient who is awake, alert, pm1 and in no acute distress. Head/Face: Normocephalic, atraumatic. Eyes: Pupils equal round and reactive to light, extra-ocular motions intact. Lids and lashes normal. Conjunctiva and sclera are non-icteric and not injected. Cornea within normal limits. Periorbital areas with no swelling, redness, or edema. ENT: Nares patent. No nasal discharge, no septal abnormalities noted. Tympanic membranes are normal and external auditory canals are clear. Oropharynx with no redness, swelling, or masses, exudates, or evidence of obstruction, uvula midline. Mucous membranes moist. Neck: Trachea midline, no thyromegaly or masses palpated, and no cervical lymphadenopathy. Supple, full range of motion without nuchal rigidity, or vertebral point tenderness. No Meningismus. Chest/axilla: Normal chest wall appearance and motion. Nontender with no deformity. No lesions are appreciated. 10:32 Abdomen/GI: Soft, non-tender. No distension. No guarding or rebound. No evidence of tenderness throughout. 10:32 Back: No spinal tenderness. No costovertebral tenderness. Full range of motion. Skin: Warm, dry with normal turgor. Normal color with no rashes, no lesions, and no evidence of cellulitis. MS/ Extremity: Pulses equal, no cyanosis. Neurovascular intact. Full, normal range of motion. 10:32 Cardiovascular: Exam negative for acute changes, Rate: normal, Rhythm: regular, Pulses: no pulse deficits are appreciated. 10:32 Respiratory: Exam negative for acute changes, respiratory distress, shortness of breath, wheezing. 10:32 Neuro: Exam negative for acute changes, focal neuro deficits, motor deficits, sensory deficits, Orientation: is normal, Mentation: is normal, Motor: is normal, moves all fours, Sensation: is normal, no obvious gross deficits. Vital Signs: 09:51 BP 115 / 75; Pulse 78; Resp 17; Temp 99.3; Pulse Ox 99% ; Weight 72.57 kg; Height 5 ft. bp (152.40 cm); 12:21 BP 119 / 69; Pulse 74; Resp 17; Temp 99.5; Pulse Ox 99% ; dm5 09:51 Body Mass Index 31.25 (72.57 kg, 152.40 cm) bp MDM: 10:03 Patient medically screened. pm1 10:38 Data reviewed: vital signs. Data interpreted: Pulse oximetry: on room air is 99 %. pm1 Interpretation: normal. 11:49 Counseling: I had a detailed discussion with the patient and/or guardian regarding: the pm1 historical points, exam findings, and any diagnostic results supporting the discharge/admit diagnosis, lab results, the need for outpatient follow up, to return to the emergency department if symptoms worsen or persist or if there are any questions or concerns that arise at home. 03/09 10:03 Order name: COVID-19 pm1 03/09 10:03 Order name: Flu; Complete Time: 11:47 pm1 03/09 10:03 Order name: Strep; Complete Time: 11:08 pm1 03/09 11:12 Order name: Throat Culture EDMA 03/09 10:03 Order name: Droplet/Contact Precautions; Complete Time: 10:12 pm1 03/09 10:03 Order name: Labs collected and sent; Complete Time: 10:33 pm1 03/09 10:03 Order name: O2 Per Protocol; Complete Time: 10:12 pm1 Administered Medications: 10:30 Drug: Ondansetron (Zofran) 4 mg Route: PO; bp 12:22 Follow up: Response: Pain is decreased dm5 10:30 Drug: [place] 5 mg-325 mg 1 tabs Route: PO; bp 12:22 Follow up: Response: Pain is decreased dm5 Disposition: 20:54 Co-signature as Attending Physician, aNtan Thrasher MD I agree with the assessment and tyler plan of care. Disposition: 03/09/20 11:52 Discharged to Home. Impression: Viral infection, unspecified. - Condition is Stable. - Discharge Instructions: COVID-19. - Prescriptions for Zofran ODT 4 mg Oral tablet,disintegrating - place 1 tablet by TRANSLINGUAL route every 8 hours As needed; 12 tablet. Tylenol- Codeine #3 300-30 mg Oral Tablet - take 2 tablets by ORAL route every 6 hours As needed; 20 tablet. - Work release form, Medication Reconciliation Form, Thank You Letter, Antibiotic Education, Prescription Opioid Use form. - Follow up: Emergency Department; When: As needed; Reason: Worsening of condition. Follow up: Private Physician; When: 2 - 3 days; Reason: Recheck today's complaints, Continuance of care, Re-evaluation by your physician. - Problem is new. - Symptoms have improved. Signatures: Dispatcher [employer] Radha Tucker RN RN dm5 Natan Thrasher MD MD cha Marinas, Patrick, NP MANAGER OF GLOBAL pm1 Anthony Vanegas RN RN bp Corrections: (The following items were deleted from the chart) 12:22 11:52 03/09/2020 11:52 Discharged to Home. Impression: Viral infection, unspecified. dm5 Condition is Stable. Forms are Medication Reconciliation Form, Thank You Letter, Antibiotic Education, Prescription Opioid Use. Follow up: Emergency Department; When: As needed; Reason: Worsening of condition. Follow up: Private Physician; When: 2 - 3 days; Reason: Recheck today's complaints, Continuance of care, Re-evaluation by your physician. Problem is new. Symptoms have improved. pm1
[2020-03-09 12:35] VITALS: O2SAT 99
[2020-03-09 12:36] VITALS: BP 119/69; TEMP 99.5
== END 2020-03-09 12:22 | disposition home or self-care (01) ==
LOC: ER 09:40
DX: U07.1 COVID-19 (principal); B34.9 Viral infection, unspecified
CPT/HCPCS: 87070; 87081; 87804; 99284; U0001

== ENCOUNTER 2021-07-27 17:07 | Emergency (ER) | payer OTHER ==
--- OUTSIDE RECORDS SUMMARY | 2021-07-27 17:12 | XMS REPORT | Continuity of Care Document ---
:1985 Author Organization [facility] t Address [address] [place] [address] Care Team Providers Name Role Phone John Powell DO Attending Clinician Akinsherie WHCNP, C Attending Clinician AMANDA C Attending Clinician Unavailable David BENSON, R Attending Clinician Doctor Unassigned, Name Attending Clinician Unavailable Payers Payer Name Policy Type Policy Number Effective Date Expiration Date S ource Advance Directives Directive Decision Effective Termination Comments Source Date Date Healthcare Agents on N/A [facility] FileNameRelationshipHealthcare [facility] Agent Medical RelationshipCommunicationViFulton State HospitalMother2 - Health Care Agent (Medical Power of Master Planner) Problems Condition Condition Condition Status Onset Resolution Last Treating Co mments Source Name Details Category Date Date Treatment Clinician Date Other Other Disease Active Overview: Univer s secondary secondary 05-20 [facility] i ty of hypertens[place] hypertens[place] hypertens Medical ion Branch currently on diamox Well woman Well woman Disease Active 2019- U nivers exam exam 05-20 ity of 00:00: [place] [facility] Contracept Contracept Disease Active 2019- U nivers lesley lesley 05-20 ity of management management 00:00: [place] [facility] [place] Abnormal Abnormal Disease Active 2019 Overview: [facility] [place] uterine uterine 05-20 Iron [place] of bleeding bleeding 00:00[place] 00 q3 [place] History of History of Disease Active U nivers anxiety anxiety 9-16 ity of 00:00: [place] [facility] [place] Tobacco Tobacco Disease Active Univers use use 16 ity of disorder disorder 00:00: [place] [facility] Contracept Contracept Disease Active U nivers lesley lesley 9-16 ity of management management 00:00: [place] [facility] [place] 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 0-22 ity of syndrome syndrome 00:00: [place] 00 Medical [place] Obesity, Obesity, Disease Active 2016-09 Unive rs Class III, Class III, 0-22 it y of BMI BMI 00:00: [place] 40-49.9 40-49.9 00 Medical (morbid (morbid Branch obesity) obesity) Allergies, Adverse Reactions, Alerts Allergy Allergy Status Severity Reaction(s) Onset Inactive Treating Comm ents Source Name Type Date Date Clinician Avocado Propensi Active Anaphylaxis 2012-09 [facility] (Laurus ty to 2-01 ity of [place]) adverse 00:00: [place] reaction 00 [facility] AVOCADO Drug Active High Anaphylaxis 2012-09 Univ ers (LAURUS Class 2-01 ity of [place]) 00:00: [place] 00 [facility] Banana Propensi Active Swelling Univer s ty to 2-26 ity of adverse 00:00: [place] reaction 00 [facility] BANANA DRUG Active High ITCHING Univers INGREDI 2-26 ity of 00:00: [place] 00 Medical [place] NO KNOWN Drug Active Univers ALLERGIE Class ity of S [facility] Social History Social Habit Start Date Stop Date Quantity Comments Source History of tobacco 2017-05-20 Cigarette Smoker University of use 00:00:00 [facility] Cigarettes smoked 2020-03-05 2020-03-05 Univers ity of current (pack per 00:00:00 00:00:00 ) - Reported Branch Alcohol intake 2020-03-05 2020-03-05 Ex-drinker University of 00:00:00 00:00:00 (finding) [facility] Tobacco use and 2020-03-05 2020-03-05 Never used Universit y of exposure 00:00:00 00:00:00 [facility] Sex [birth year] Universit y of 00:00:00 00:00:00 [facility] Smoking Status Start Date Stop Date Source Current every day smoker 2020-03-05 00:00:00 Uni versity [facility] Medications Ordered Filled Start Stop Current Ordering Indication Dosage Frequency Signature Comments Components Source Medication Medication Date Date Medication? Clinician (SIG) Name Name ACYCLOVIR 2019- Yes [id number] TAKE 1 [facility] [place] 400 mg 2-07 TABLET BY ity of tablet 00:00: MOUTH THREE Medical TIMES Branch DAILY FOR 7 DAYS ACYCLOVIR 2019-09 Yes [id number] TAKE 1 [place] 400 mg 2-07 TABLET BY ity of tablet 00:00: MOUTH THREE Medical TIMES Branch DAILY FOR 7 DAYS ACYCLOVIR 2019-09 Yes [id number] TAKE 1 [place] 400 mg 2-07 TABLET BY ity of tablet 00:00: MOUTH THREE Medical TIMES Branch DAILY FOR 7 DAYS metroNIDAZO 2020-0 Yes [id number] 500mg Take 1 Univers LE 500 mg 7-06 tablet by ity o f tablet 00:00: mouth [place] (two) Medical times Branch daily. metroNIDAZO 2020-0 Yes [id number] 500mg Take 1 Univers LE 500 mg 7-06 tablet by ity o f tablet 00:00: mouth [place] (two) Medical times Branch daily. metroNIDAZO 2020-0 Yes [id number] 500mg Take 1 Univers LE 500 mg 7-06 tablet by ity o f tablet 00:00: mouth [place] (two) Medical times Branch daily. metroNIDAZO 2020-0 Yes [id number] 500mg Take 1 Univers LE 500 mg 7-06 tablet by ity o f tablet 00:00: mouth [place] (two) Medical times Branch daily. metroNIDAZO 2020-0 Yes [id number] 500mg Take 1 Univers LE 500 mg 7-06 tablet by ity o f tablet 00:00: mouth [place] (two) Medical times Branch daily. metroNIDAZO 2020-0 Yes [id number] 500mg Take 1 Univers LE 500 mg 7-06 tablet by ity o f tablet 00:00: mouth [place] (two) Medical times Branch daily. metroNIDAZO 2020-0 Yes [id number] 500mg Take 1 Univers LE 500 mg 7-06 tablet by ity o f tablet 00:00: [facility] (two) Medical times Branch daily. metroNIDAZO 2020-0 Yes [id number] 500mg Take 1 Univers LE 500 mg 7-06 tablet by ity o f tablet 00:00: [facility] (two) Medical times Branch daily. ACYCLOVIR 2020-0 Yes [id number] TAKE 1 [facility] [place] 400 mg 6-30 TABLET BY ity of tablet 00:00: THREE Medical TIMES Branch DAILY FOR 7 DAYS ACYCLOVIR 2020-0 Yes [id number] TAKE 1 [facility] [place] 400 mg 6-30 TABLET BY ity of tablet 00:00: THREE Medical TIMES Branch DAILY FOR 7 DAYS ACYCLOVIR 2020-0 Yes [id number] TAKE 1 [facility] [place] 400 mg 6-30 TABLET BY ity of tablet 00:00: [facility] THREE Medical TIMES Branch DAILY FOR 7 DAYS ACYCLOVIR 2020-0 Yes [id number] TAKE 1 [facility] [place] 400 mg 6-30 TABLET BY ity of tablet 00:00: [facility] THREE Medical TIMES Branch DAILY FOR 7 DAYS ACYCLOVIR 2020-0 Yes [id number] TAKE 1 [facility] [place] 400 mg 6-30 TABLET BY ity of tablet 00:00: [facility] THREE Medical TIMES Branch DAILY FOR 7 DAYS ACYCLOVIR 2020-0 Yes [id number] TAKE 1 [facility] [place] 400 mg 6-30 TABLET BY ity of tablet 00:00: [facility] THREE Medical TIMES Branch DAILY FOR 7 DAYS ACYCLOVIR 2020-0 Yes [id number] TAKE 1 [facility] [place] 400 mg 6-30 TABLET BY ity of tablet 00:00: [facility] THREE Medical TIMES Branch DAILY FOR 7 DAYS ACYCLOVIR 2020-0 Yes [id number] TAKE 1 [facility] [place] 400 mg 6-30 TABLET BY ity of tablet 00:00: [facility] THREE Medical TIMES Branch DAILY FOR 7 DAYS ACYCLOVIR 2020-0 Yes [id number] TAKE 1 [facility] [place] 400 mg 6-30 TABLET BY ity of tablet 00:00: [facility] THREE Medical TIMES Branch DAILY FOR 7 DAYS ACYCLOVIR 2020-0 2020- No [id number] TAKE 1 U nivers 400 mg 6-30 12-07 TABLET BY ity of tablet 00:00: 00:00 MOUTH [place] 00 :00 THREE Medical TIMES Branch DAILY FOR 7 DAYS ACYCLOVIR 2020-0 Yes [id number] TAKE 1 [facility] [place] 400 mg 5-26 TABLET BY ity of tablet 00:00: MOUTH [place] 00 THREE Medical TIMES Branch DAILY FOR 7 DAYS ACYCLOVIR Yes [id number] TAKE 1 [facility] [place] 400 mg 5-26 TABLET BY ity of tablet 00:00: MOUTH [place] 00 THREE Medical TIMES Branch DAILY FOR 7 DAYS ACYCLOVIR 2020- No [id number] TAKE 1 U nivers 400 mg 5-26 06-30 TABLET BY ity of tablet 00:00: 00:00 MOUTH [place] 00 :00 THREE Medical TIMES Branch DAILY FOR 7 DAYS fluconazole 2020- No [id number] 150mg Take 1 Univers (DIFLUCAN) 12-08- tablet by ity of 150 mg 00:00: 04:59 [place] tablet 00 :00 now for 1 Medical dose. Branch fluconazole 2020- No [id number] 150mg Take 1 Univers (DIFLUCAN) 12-08- tablet by ity of 150 mg 00:00: 04:59 mouth [place] tablet 00 :00 now for 1 Medical dose. Branch ACYCLOVIR 2018-09 Yes [id number] TAKE 1 [facility] [place] 400 mg 1-18 TABLET BY ity of tablet 00:00: MOUTH [place] 00 THREE Medical TIMES Branch DAILY FOR 7 DAYS ACYCLOVIR 2018-09 Yes [id number] TAKE 1 [facility] [place] 400 mg 1-18 TABLET BY ity of tablet 00:00: MOUTH [place] 00 THREE Medical TIMES Branch DAILY FOR 7 DAYS ACYCLOVIR 2018-09 Yes [id number] TAKE 1 [facility] [place] 400 mg 1-18 TABLET BY ity of tablet 00:00: MOUTH [place] 00 THREE Medical TIMES Branch DAILY FOR 7 DAYS ACYCLOVIR 2018-09 2020- No [id number] TAKE 1 U nivers 400 mg 1-18 05-26 TABLET BY ity of tablet 00:00: 00:00 MOUTH [place] 00 :00 THREE Medical TIMES Branch DAILY FOR 7 DAYS acetaZOLAMI 2018- Yes [id number] 500mg Take 500 Univers DE (DIAMOX 9-16 mg by ity of SEQUELS) 14:23: mouth 2 [place] 500 mg 07 (two) Medical capsule times Branch daily. MULTIVITAMI 2019- Yes [id number] Take by Univers N ORAL 9-16 mouth. ity of 14:23: [place] 07 Medical Branch cyanocobala 2018- Yes Inject as Univers min, 9-16 directed ity of vitamin 14:23: weekly. [place] B-12, (B-12 07 Medical COMPLIANCE Branch INJECTION) NaCl 0.9% 2019-0 Yes by IV Univers (NS) SolP 916 Infusion ity of 250 mL with 14:23: route once [place] iron 07 now. Medical sucrose 100 Indication Br anch mg iron/5 s: every 3 mL Soln months for anemia acetaZOLAMI 2019-0 Yes [id number] 500mg Take 500 Univers DE (DIAMOX 9-16 mg by ity of SEQUELS) 14:23: mouth 2 [place] 500 mg 07 (two) Medical capsule times Branch daily. MULTIVITAMI 2019-0 Yes [id number] Take by Univers N ORAL 9-16 mouth. ity of 14:23: [address] [place] [address] Branch cyanocobala Yes Inject as Univers min, 16 directed ity of vitamin 14:23: weekly. [place] B-12, (B-12 07 Medical COMPLIANCE Branch INJECTION) NaCl 0.9% 2019-0 Yes by IV Univers (NS) SolP 916 Infusion ity of 250 mL with 14:23: route once [place] iron 07 now. Medical sucrose 100 Indication Br anch mg iron/5 s: every 3 mL Soln months for anemia acetaZOLAMI 2019-0 Yes [id number] 500mg Take 500 Univers DE (DIAMOX 9-16 mg by ity of SEQUELS) 14:23: mouth 2 [place] 500 mg 07 (two) Medical capsule times Branch daily. MULTIVITAMI 2019-0 Yes [id number] Take by Univers N ORAL 9-16 mouth. ity of 14:23: [address] cyanocobala 0 Yes Inject as Univers min, 05-20 directed ity of vitamin 14:23: weekly. [place] B-12, (B-12 07 Medical COMPLIANCE Branch INJECTION) NaCl 0.9% 2019-0 Yes by IV Univers (NS) SolP 916 Infusion ity of 250 mL with 14:23: route once [place] iron 07 now. Medical sucrose 100 Indication Br anch mg iron/5 s: every 3 mL Soln months for anemia acetaZOLAMI 2019-0 Yes [id number] 500mg Take 500 Univers DE (DIAMOX 9-16 mg by ity of SEQUELS) 14:23: mouth 2 [place] 500 mg 07 (two) Medical capsule times Branch daily. MULTIVITAMI 2019-0 Yes [id number] Take by Univers N ORAL 9-16 mouth. ity of 14:23: [address] cyanocobala Yes Inject as Univers min, 916 directed ity of vitamin 14:23: weekly. [place] B-12, (B-12 07 Medical COMPLIANCE Branch INJECTION) NaCl 0.9% Yes by IV Univers (NS) SolP 916 Infusion ity of 250 mL with 14:23: route once [place] iron 07 now. Medical sucrose 100 Indication Br anch mg iron/5 s: every 3 mL Soln months for anemia acetaZOLAMI Yes [id number] 500mg Take 500 Univers DE (DIAMOX 9-16 mg by ity of SEQUELS) 14:23: mouth 2 [place] 500 mg 07 (two) Medical capsule times Branch daily. MULTIVITAMI Yes [id number] Take by Univers N ORAL 9-16 mouth. ity of 14:23: [address] cyanocobala Yes Inject as Univers min, 16 directed ity of vitamin 14:23: weekly. [place] B-12, (B-12 07 Medical COMPLIANCE Branch INJECTION) NaCl 0.9% Yes by IV Univers (NS) SolP 916 Infusion ity of 250 mL with 14:23: route once [place] iron 07 now. Medical sucrose 100 Indication Br anch mg iron/5 s: every 3 mL Soln months for anemia acetaZOLAMI Yes [id number] 500mg Take 500 Univers DE (DIAMOX 9-16 mg by ity of SEQUELS) 14:23: mouth 2 [place] 500 mg 07 (two) Medical capsule times Branch daily. MULTIVITAMI Yes [id number] Take by Univers N ORAL 9-16 mouth. ity of 14:23: [address] cyanocobala Yes Inject as Univers min, 916 directed ity of vitamin 14:23: weekly. [place] B-12, (B-12 07 Medical COMPLIANCE Branch INJECTION) NaCl 0.9% Yes by IV Univers (NS) SolP 916 Infusion ity of 250 mL with 14:23: route once [place] iron 07 now. Medical sucrose 100 Indication Br anch mg iron/5 s: every 3 mL Soln months for anemia acetaZOLAMI Yes [id number] 500mg Take 500 Univers DE (DIAMOX 9-16 mg by ity of SEQUELS) 14:23: mouth 2 [place] 500 mg 07 (two) Medical capsule times Branch daily. MULTIVITAMI 20190 Yes [id number] Take by Univers N ORAL 9-16 mouth. ity of 14:23: [address] cyanocobala Yes Inject as Univers min, 9-16 directed ity of vitamin 14:23: weekly. [place] B-12, (B-12 07 Medical COMPLIANCE Branch INJECTION) NaCl 0.9% 2019- Yes by IV Univers (NS) SolP 9-16 Infusion ity of 250 mL with 14:23: route once [place] iron 07 now. Medical sucrose 100 Indication Br anch mg iron/5 s: every 3 mL Soln months for anemia acetaZOLAMI Yes [id number] 500mg Take 500 Univers DE (DIAMOX 9-16 mg by ity of SEQUELS) 14:23: mouth 2 [place] 500 mg 07 (two) Medical capsule times Branch daily. MULTIVITAMI Yes [id number] Take by Univers N ORAL 9-16 mouth. ity of 14:23: [address] cyanocobala Yes Inject as Univers min, 05-20 directed ity of vitamin 14:23: weekly. [place] B-12, (B-12 07 Medical COMPLIANCE Branch INJECTION) NaCl 0.9% 2018- Yes by IV Univers (NS) SolP 9-16 Infusion ity of 250 mL with 14:23: route once [place] iron 07 now. Medical sucrose 100 Indication Br anch mg iron/5 s: every 3 mL Soln months for anemia acetaZOLAMI Yes [id number] 500mg Take 500 Univers DE (DIAMOX 9-16 mg by ity of SEQUELS) 14:23: mouth 2 [place] 500 mg 07 (two) Medical capsule times Branch daily. MULTIVITAMI 2019-0 Yes [id number] Take by Univers N ORAL 9-16 mouth. ity of 14:23: [address] cyanocobala Yes Inject as Univers min, 9-16 directed ity of vitamin 14:23: weekly. [place] B-12, (B-12 07 Medical COMPLIANCE Branch INJECTION) NaCl 0.9% 2019- Yes by IV Univers (NS) SolP 9-16 Infusion ity of 250 mL with 14:23: route once [place] iron 07 now. Medical sucrose 100 Indication Br anch mg iron/5 s: every 3 mL Soln months for anemia acetaZOLAMI 2019-0 Yes [id number] 500mg Take 500 Univers DE (DIAMOX 9-16 mg by ity of SEQUELS) 14:23: mouth 2 [place] 500 mg 07 (two) Medical capsule times Branch daily. MULTIVITAMI 2019-0 Yes [id number] Take by Univers N ORAL 9-16 mouth. ity of 14:23: [address] cyanocobala Yes Inject as Univers min, 9-16 directed ity of vitamin 14:23: weekly. [place] B-12, (B-12 07 Medical COMPLIANCE Branch INJECTION) NaCl 0.9% 2019- Yes by IV Univers (NS) SolP 9-16 Infusion ity of 250 mL with 14:23: route once [place] iron 07 now. Medical sucrose 100 Indication Br anch mg iron/5 s: every 3 mL Soln months for anemia acetaZOLAMI 2019-0 Yes [id number] 500mg Take 500 Univers DE (DIAMOX 9-16 mg by ity of SEQUELS) 14:23: mouth 2 [place] 500 mg 07 (two) Medical capsule times Branch daily. MULTIVITAMI 20190 Yes [id number] Take by Univers N ORAL 9-16 mouth. ity of 14:23: [address] cyanocobala Yes Inject as Univers min, 916 directed ity of vitamin 14:23: weekly. [place] B-12, (B-12 07 Medical COMPLIANCE Branch INJECTION) NaCl 0.9% 2019- Yes by IV Univers (NS) SolP 9-16 Infusion ity of 250 mL with 14:23: route once [place] iron 07 now. Medical sucrose 100 Indication Br anch mg iron/5 s: every 3 mL Soln months for anemia acetaZOLAMI 2019-0 Yes [id number] 500mg Take 500 Univers DE (DIAMOX 9-16 mg by ity of SEQUELS) 14:23: mouth 2 [place] 500 mg 07 (two) Medical capsule times Branch daily. MULTIVITAMI 2019-0 Yes [id number] Take by Univers N ORAL 9-16 mouth. ity of 14:23: [address] cyanocobala Yes Inject as Univers min, 9-16 directed ity of vitamin 14:23: weekly. [place] B-12, (B-12 07 Medical COMPLIANCE Branch INJECTION) NaCl 0.9% 2019- Yes by IV Univers (NS) SolP 9-16 Infusion ity of 250 mL with 14:23: route once [place] iron 07 now. Medical sucrose 100 Indication Br anch mg iron/5 s: every 3 mL Soln months for anemia acetaZOLAMI 2019 Yes [id number] 500mg Take 500 Univers DE (DIAMOX 9-16 mg by ity of SEQUELS) 14:23: mouth 2 [place] 500 mg 07 (two) Medical capsule times Branch daily. MULTIVITAMI 20190 Yes [id number] Take by Univers N ORAL 9-16 mouth. ity of 14:23: [address] [place] [address] Branch cyanocobala Yes Inject as Univers min, 16 directed ity of vitamin 14:23: weekly. [place] B-12, (B-12 07 Medical COMPLIANCE Branch INJECTION) NaCl 0.9% Yes by IV Univers (NS) SolP 9-16 Infusion ity of 250 mL with 14:23: route once [place] iron 07 now. Medical sucrose 100 Indication Br anch mg iron/5 s: every 3 mL Soln months for anemia acetaZOLAMI Yes [id number] 500mg Take 500 Univers DE (DIAMOX 9-16 mg by ity of SEQUELS) 14:23: mouth 2 [place] 500 mg 07 (two) Medical capsule times Branch daily. MULTIVITAMI 0 Yes [id number] Take by Univers N ORAL 9-16 mouth. ity of 14:23: [address] [place] [address] Branch cyanocobala Yes Inject as Univers min, 16 directed ity of vitamin 14:23: weekly. [place] B-12, (B-12 07 Medical COMPLIANCE Branch INJECTION) NaCl 0.9% Yes by IV Univers (NS) SolP 916 Infusion ity of 250 mL with 14:23: route once [place] iron 07 now. Medical sucrose 100 Indication Br anch mg iron/5 s: every 3 mL Soln months for anemia acetaZOLAMI 20190 Yes [id number] 500mg Take 500 Univers DE (DIAMOX 9-16 mg by ity of SEQUELS) 14:23: mouth 2 [place] 500 mg 07 (two) Medical capsule times Branch daily. MULTIVITAMI 2019-0 Yes [id number] Take by Univers N ORAL 9-16 mouth. ity of 14:23: [place] [facility] Branch cyanocobala Yes Inject as Univers min, 916 directed ity of vitamin 14:23: weekly. [place] B-12, (B-12 07 Medical COMPLIANCE Branch INJECTION) NaCl 0.9% Yes by IV Univers (NS) SolP 916 Infusion ity of 250 mL with 14:23: route once [place] iron 07 now. Medical sucrose 100 Indication Br anch mg iron/5 s: every 3 mL Soln months for anemia acetaZOLAMI Yes [id number] 500mg Take 500 Univers DE (DIAMOX 9-16 mg by ity of SEQUELS) 14:23: mouth 2 [place] 500 mg 07 (two) Medical capsule times Branch daily. MULTIVITAMI Yes [id number] Take by Univers N ORAL 9-16 mouth. ity of 14:23: [address] cyanocobala Yes Inject as Univers min, 16 directed ity of vitamin 14:23: weekly. [place] B-12, (B-12 07 Medical COMPLIANCE Branch INJECTION) NaCl 0.9% Yes by IV Univers (NS) SolP 916 Infusion ity of 250 mL with 14:23: route once [place] iron 07 now. Medical sucrose 100 Indication Br anch mg iron/5 s: every 3 mL Soln months for anemia acetaZOLAMI Yes [id number] 500mg Take 500 Univers DE (DIAMOX 9-16 mg by ity of SEQUELS) 14:23: mouth 2 [place] 500 mg 07 (two) Medical capsule times Branch daily. MULTIVITAMI 0 Yes [id number] Take by Univers N ORAL 9-16 mouth. ity of 14:23: [address] cyanocobala Yes Inject as Univers min, 16 directed ity of vitamin 14:23: weekly. [place] B-12, (B-12 07 Medical COMPLIANCE Branch INJECTION) NaCl 0.9% Yes by IV Univers (NS) SolP 9-16 Infusion ity of 250 mL with 14:23: route once [place] iron 07 now. Medical sucrose 100 Indication Br anch mg iron/5 s: every 3 mL Soln months for anemia acetaZOLAMI 20190 Yes [id number] 500mg Take 500 Univers DE (DIAMOX 9-16 mg by ity of SEQUELS) 14:23: mouth 2 [place] 500 mg 07 (two) Medical capsule times Branch daily. MULTIVITAMI 2019- Yes [id number] Take by Univers N ORAL 9-16 mouth. ity of 14:23: [facility] Branch cyanocobala Yes Inject as Univers min, 9-16 directed ity of vitamin 14:23: weekly. [place] B-12, (B-12 07 Medical COMPLIANCE Branch INJECTION) NaCl 0.9% Yes by IV Univers (NS) SolP 9-16 Infusion ity of 250 mL with 14:23: route once [place] iron 07 now. Medical sucrose 100 Indication Br anch mg iron/5 s: every 3 mL Soln months for anemia acetaZOLAMI Yes [id number] 500mg Take 500 Univers DE (DIAMOX 9-16 mg by ity of SEQUELS) 14:23: mouth 2 [place] 500 mg 07 (two) Medical capsule times Branch daily. MULTIVITAMI Yes [id number] Take by Univers N ORAL 9-16 mouth. ity of 14:23: [facility] Branch cyanocobala Yes Inject as Univers min, 16 directed ity of vitamin 14:23: weekly. [place] B-12, (B-12 07 Medical COMPLIANCE Branch INJECTION) NaCl 0.9% Yes by IV Univers (NS) SolP 9-16 Infusion ity of 250 mL with 14:23: route once [place] iron 07 now. Medical sucrose 100 Indication Br anch mg iron/5 s: every 3 mL Soln months for anemia norethindro Yes [id number] 1{tbl} Take 1 Univers ne 0.35 mg 9-16 tablet by ity of tablet 00:00: mouth [place] 00 daily. Medical Branch norethindro Yes [id number] 1{tbl} Take 1 Univers ne 0.35 mg 9-16 tablet by ity of tablet 00:00: mouth [place] 00 daily. Medical Branch norethindro Yes [id number] 1{tbl} Take 1 Univers ne 0.35 mg 9-16 tablet by ity of tablet 00:00: mouth [place] 00 daily. [facility] Branch norethindro Yes [id number] 1{tbl} Take 1 Univers ne 0.35 mg 9-16 tablet by ity of tablet 00:00: mouth [place] 00 daily. [facility] Yes [id number] 1{tbl} Take 1 Univers ne 0.35 mg 9-16 tablet by ity of tablet 00:00: mouth [place] 00 daily. [facility] Yes [id number] 1{tbl} Take 1 Univers ne 0.35 mg 9-16 tablet by ity of tablet 00:00: mouth [place] 00 daily. [facility] Yes [id number] 1{tbl} Take 1 Univers ne 0.35 mg 9-16 tablet by ity of tablet 00:00: mouth [place] 00 daily. [facility] Yes [id number] 1{tbl} Take 1 Univers ne 0.35 mg 9-16 tablet by ity of tablet 00:00: mouth [place] 00 daily. [facility] Yes [id number] 1{tbl} Take 1 Univers ne 0.35 mg 9-16 tablet by ity of tablet 00:00: mouth [place] 00 daily. [facility] Yes [id number] 1{tbl} Take 1 Univers ne 0.35 mg 9-16 tablet by ity of tablet 00:00: mouth [place] 00 daily. [facility] Yes [id number] 1{tbl} Take 1 Univers ne 0.35 mg 9-16 tablet by ity of tablet 00:00: mouth [place] 00 daily. [facility] Yes [id number] 1{tbl} Take 1 Univers ne 0.35 mg 9-16 tablet by ity of tablet 00:00: mouth [place] 00 daily. [facility] Yes [id number] 1{tbl} Take 1 Univers ne 0.35 mg 9-16 tablet by ity of tablet 00:00: mouth [place] 00 daily. [facility] Yes [id number] 1{tbl} Take 1 Univers ne 0.35 mg 9-16 tablet by ity of tablet 00:00: mouth [place] 00 daily. [facility] Yes [id number] 1{tbl} Take 1 Univers ne 0.35 mg 9-16 tablet by ity of tablet 00:00: mouth [place] 00 daily. [facility] Yes [id number] 1{tbl} Take 1 Univers ne 0.35 mg 9-16 tablet by ity of tablet 00:00: mouth [place] 00 daily. Medical Branch norethindro Yes [id number] 1{tbl} Take 1 Univers ne 0.35 mg 9-16 tablet by ity of tablet 00:00: mouth [place] 00 daily. Medical Branch norethindro Yes [id number] 1{tbl} Take 1 Univers ne 0.35 mg 9-16 tablet by ity of tablet 00:00: mouth [place] 00 daily. Medical Branch norethindro Yes [id number] 1{tbl} Take 1 Univers ne 0.35 mg 9-16 tablet by ity of tablet 00:00: mouth [place] 00 daily. Medical Branch acetaZOLAMI 2016-09 Yes [id number] 500mg Take 500 Univers DE (DIAMOX 0-23 mg by ity of SEQUELS) 00:11: mouth 2 [place] 500 mg 37 (two) Medical capsule [facility] Branch daily. MULTIVITAMI 2016-09 Yes [id number] Take by Univers N ORAL 0-23 mouth. ity of 00:11: [place] 37 [facility] Immunizations Ordered Immunization Filled Immunization Date Status Commen ts Source Name Name Meningococcal 2012-02-29 Completed University of Vaccine 00:00:00 [facility] Meningococcal 2012-02-29 Completed University of Vaccine 00:00:00 [facility] Meningococcal 2012-02-29 Completed University of Vaccine 00:00:00 [facility] Meningococcal 2012-02-29 Completed University of Vaccine 00:00:00 [facility] Meningococcal 2012-02-29 Completed University of Vaccine 00:00:00 [facility] Meningococcal 2012-02-29 Completed University of Vaccine 00:00:00 [facility] Meningococcal 2012-02-29 Completed University of Vaccine 00:00:00 [facility] Meningococcal 2012-02-29 Completed University of Vaccine 00:00:00 [facility] Meningococcal 2012-02-29 Completed University of Vaccine 00:00:00 [facility] Meningococcal 2012-02-29 Completed University of Vaccine 00:00:00 [facility] Meningococcal 2012-02-29 Completed University of Vaccine 00:00:00 [facility] Meningococcal 2012-02-29 Completed University of Vaccine 00:00:00 [facility] Meningococcal 2012-02-29 Completed University of Vaccine 00:00:00 [facility] Meningococcal 2012-02-29 Completed [facility] of Vaccine 00:00:00 [facility] Meningococcal 2012-02-29 Completed University of Vaccine 00:00:00 [facility] Meningococcal 2012-02-29 Completed University of Vaccine 00:00:00 [facility] Meningococcal 2012-02-29 Completed [facility] of Vaccine 00:00:00 [facility] Tdap 2010-03-05 Completed University of 00:00:00 [facility] TDAP 2010-03-05 Completed University of 00:00:00 [facility] TDAP 2010-03-05 Completed University of 00:00:00 [facility] TDAP 2010-03-05 Completed University of 00:00:00 [facility] TDAP 2010-03-05 Completed University of 00:00:00 [facility] TDAP 2010-03-05 Completed University of 00:00:00 [facility] TDAP 2010-03-05 Completed University of 00:00:00 [facility] TDAP 2010-03-05 Completed University of 00:00:00 [facility] TDAP 2010-03-05 Completed University of 00:00:00 [facility] TDAP 2010-03-05 Completed University of 00:00:00 [facility] TDAP 2010-03-05 Completed University of 00:00:00 [facility] TDAP 2010-03-05 Completed University of 00:00:00 [facility] TDAP 2010-03-05 Completed University of 00:00:00 [facility] Tdap 2010-03-05 Completed [facility] of 00:00:00 [facility] Tdap 2010-03-05 Completed University of 00:00:00 [facility] Tdap 2010-03-05 Completed [facility] 00:00:00 [facility] Tdap 2010-03-05 Completed [facility] 00:00:00 [facility] Vital Signs Vital Name Observation Time Observation Value Comments Source Systolic blood 2020-03-05 21:09:00 134 mm[Hg] Univer sity of pressure [facility] Diastolic blood 2020-03-05 21:09:00 81 mm[Hg] Unive rsity of pressure [facility] Heart rate 2020-03-05 21:09:00 79 /min Universi ty of [facility] Body temperature 2020-03-05 21:09:00 36.61 [place] Univ ersity of [facility] Respiratory rate 2020-03-05 21:09:00 16 /min Univ ersity of [facility] Body height 2020-03-05 21:09:00 152.4 cm Universi ty of [facility] Body weight 2020-03-05 21:09:00 74.798 kg Universi ty of [facility] BMI 2020-03-05 21:09:00 32.20 kg/m2 Universi ty of [facility] Systolic blood 2019-05-20 14:14:00 121 mm[Hg] Univer sity of pressure [facility] Diastolic blood 2019-05-20 14:14:00 87 mm[Hg] Unive rsity of pressure [facility] Heart rate 2019-05-20 14:14:00 82 /min Universi ty of [facility] Body temperature 2019-05-20 14:14:00 36.61 [facility]ley [facility] ersity of [facility] Respiratory rate 2019-05-20 14:14:00 16 /min Univ ersity of [facility] Body height 2019-05-20 14:14:00 152.4 cm Universi ty of [facility] Body weight 2019-05-20 14:14:00 76.913 kg Universi ty of [facility] BMI 2019-05-20 14:14:00 33.12 kg/m2 Universi ty of [facility] Procedures Procedure Date / Time Performed Performing Clinician Faizan e POCT TEST 2020-03-05 00:00:00 Marika Patel Uni versity of [facility] POCT URINALYSIS W/O 2020-03-05 00:00:00 Marika Patel Uni vers[facility] of [place] SPECIFIC GRAVITY [facility] ASSIGNMENT OF BENEFITS 2019-05-20 13:58:59 Doctor Unassigned, No [facility] Encounters Start End Encounter Admission Attending Care Care Encounter Source Date/Time Date/Time Type Type Clinicians Facility Department ID 2020-11-23 2020-11-23 Patient ELYSIA Powell [id number] 00:00:00 00:00:00 Outreach Adonay PRIMARY [id number] i ty of [facility] 4.2.7.2.686 [place] [id number] Ms dical [address] 2020-09-08 2020-09-08 Refill Akinsipe, [facility] [id number] 00:00:00 00:00:00 Marika C DISCHARGE COORDINATOR [id number] REGIONAL [id number] MATERNAL [id number] & CHILD 107 [facility] 2020-09-08 2020-09-08 Refill Akinsipe, [facility] [id number] Univers 00:00:00 00:00:00 Marika C DISCHARGE COORDINATOR [id number] ity of REGIONAL [id number] Prabhu as MATERNAL [id number] [facility] ical & CHILD [address] [place] [address] 2020-08-07 2020-08-07 Refill Akinsipe, [facility] [id number] 00:00:00 00:00:00 Marika C DISCHARGE COORDINATOR [id number] REGIONAL [id number] MATERNAL [id number] & CHILD 107 [facility] 2020-08-07 2020-08-07 Refill Akinsipe, [facility] [id number] Univers 00:00:00 00:00:00 Marika C DISCHARGE COORDINATOR [id number] ity of REGIONAL [id number] Prabhu as MATERNAL [id number] [facility] ical & CHILD [address] [place] [address] 2020-07-14 2020-07-14 Telephone Akinsipe, [facility] [id number] 00:00:00 00:00:00 Marika C DISCHARGE COORDINATOR [id number] REGIONAL [id number] MATERNAL [phone] & CHILD [address] [place] [address] 2020-07-14 2020-07-14 Telephone Akinsipe, [facility] [id number] Univers 00:00:00 00:00:00 Marika C DISCHARGE COORDINATOR [id number] ity of REGIONAL [id number] Prabhu as MATERNAL [id number] Med ical & CHILD [address] [place] [address] 2020-05-22 2020-05-22 Outpatient R AKINSIPE, [facility] [id number] 3L-20 Univers 15:00:00 15:00:00 MARIKA [id number] michelledamian o marcin [facility] 2020-05-22 2020-05-22 Outpatient R AKINSIPE, [facility] [id number] Univers 15:00:00 15:00:00 MARIKA martinezdamian o [facility] 2020-03-16 2020-03-16 Outpatient R AKINSIPE, [facility] [id number] 3L-[id number] Univers 14:30:00 14:30:00 MARIKA [id number] michelledamian o marcin [facility] 2020-03-16 2020-03-16 Outpatient R AKINSIPE, [facility] [id number] Univers 14:30:00 14:30:00 MARIKA martinezdamian o [facility] 2020-03-09 2020-03-09 [facility] [id number] 00:00:00 00:00:00 Marika C DISCHARGE COORDINATOR [id number] REGIONAL [id number] MATERNAL [phone] & CHILD [address] [place] [address] 2020-03-09 2020-03-09 [facility] [id number] [facility] 00:00:00 00:00:00 Marika C DISCHARGE COORDINATOR [id number] ity of REGIONAL [id number] Prabhu as MATERNAL [id number] [facility] & CHILD [address] [place] [address] 2020-03-05 2020-03-05 [facility] [id number] Univers 15:49:29 16:35:44 Visit Marika C DISCHARGE COORDINATOR [id number] ity of REGIONAL [id number] Prabhu as MATERNAL [id number] [facility] & CHILD [address] [place] [address] 2020-03-05 2020-03-05 Outpatient R AKINSIPE, [facility] [id number] 3L-20 Univers 15:45:00 15:45:00 MARIKA michelledamian o [facility] 2020-03-05 2020-03-05 Outpatient R AKINSIPE, [facility] [id number] Univers 15:45:00 15:45:00 MARIKA ity o f [facility] 2020-03-05 2020-03-05 Outpatient R AKINSIPE, [facility] [id number] Univers 15:45:00 15:45:00 MARIKA ity o f [facility] 2020-03-03 2020-03-03 Refill Akinsipe, [facility] [id number] Univers 00:00:00 00:00:00 Marika C DISCHARGE COORDINATOR [id number] ity of REGIONAL [id number] Prabhu as MATERNAL [id number] [facility] ical & CHILD [address] [place] [address] 2020-03-03 2020-03-03 [facility] [id number] Univers 00:00:00 00:00:00 Vineeta R DISCHARGE COORDINATOR [id number] ity of REGIONAL [id number] Prabhu as MATERNAL [id number] [facility] ical & CHILD [address] [place] [address] 2020-02-25 2020-02-25 Outpatient R AKINSIPE, [facility] [id number] 3L-20 Univers 10:00:00 10:00:00 MARIKA [id number] michelley o f [facility] 2020-02-25 2020-02-25 Outpatient R AKINSIPE, [facility] [id number] Univers 10:00:00 10:00:00 MARIKA ity o f [facility] 2020-02-14 2020-02-14 Refill Akinsipe, [facility] [id number] Univers 00:00:00 00:00:00 Marika C DISCHARGE COORDINATOR [id number] ity of REGIONAL [id number] Prabhu as MATERNAL [id number] [facility] ical & CHILD [address] [place] [address] 2020-01-25 2020-01-25 Refill Akinsipe, [facility] [id number] Univers 00:00:00 00:00:00 Marika C DISCHARGE COORDINATOR [id number] ity of REGIONAL [id number] Prabhu as MATERNAL [id number] [facility] ical & CHILD [address] [place] [address] 2020-01-06 2020-01-06 Refill Amanda [facility] [id number] Univers 00:00:00 00:00:00 Marika Woodall DISCHARGE COORDINATOR [id number] ity of [facility] [id number] Prabhu as MATERNAL [id number] [facility] & CHILD [address] [place] [address] 2019-12-09 2019-12-09 Telephone David [facility] [id number] Univers 00:00:00 00:00:00 Rosbrain Avila DISCHARGE COORDINATOR [id number] ity of [facility] [id number] Prabhu as MATERNAL [id number] [facility] & [address] 2019-05-20 2019-05-20 Office Amanda [facility] [id number] Univers 09:04:53 10:00:45 Visit Marika Woodall DISCHARGE COORDINATOR [id number] ity of [facility] [id number] Prabhu as MATERNAL [id number] [facility] & CHILD [address] [place] [address] 2019-05-20 2019-05-20 Orders Doctor LUTHER [id number] Univers 00:00:00 00:00:00 Only Unassigned, KUNAL 350.1.13.10 ity of [place] [facility] [id number] Prabhu as [id number] [address] Results Test Description Test Time Test Comments Results Result Comments Source POCT URINALYSIS W/O SPECIFIC GRAVITY 2020-03-05 21:14:00 Test Item Value Reference Range Interpretation Comme nts POCT PH U (test code = 3254) 5 mg/dl 5-8 POCT U LEUK EST (test code = 3263) 2+ Negative - Negative POCT U NIT (test code = 3262) neg Negative - Negative POCT U PROT (test code = 3259) Negative - Negative POCT U GLU (test code = 3256) normal Negative - Negative POCT U KETONE (test code = 3258) large Negative - Negative POCT U BLD (test code = 3257) Negative - Negative [facility] SPECIFIC [id number] 21:14:00 Test Item Value Reference Range Interpretation Comments POCT PH U (test code = 3254) 5 mg/dl 5-8 POCT U LEUK EST (test code = 2+ Negative - Negative 3263) POCT U NIT (test code = 3262) neg Negative - Negative POCT U PROT (test code = 3259) Negative - Negative POCT U GLU (test code = 3256) normal Negative - Negative POCT U KETONE (test code = 3258) large Negative - Negative POCT U BLD (test code = 3257) Negative - Negative [facility] [id number] 21:12:00 Test Item Value Reference Range Interpretation Comments POCT PREG (test code = 1605) Negative On board controls acceptable with C Yes Line (test code = 3574) POCT PREG LOT # (test code = 3575) POCT PREG TEST DATE (test code = 3576) [facility] [id number] 21:12:00 Test Item Value Reference Range Interpretation Comments POCT PREG (test code = 1605) Negative On board controls acceptable with C Yes Line (test code = 3574) POCT PREG LOT # (test code = 3575) POCT PREG TEST DATE (test code = 3576) [facility]
[2021-07-27 18:41] LABS: Absolute Lymphocytes (CBC) 1.3 K/uL (0.7-4.9); Basophils % 0.3 % (0-1.3); Hematocrit 18.7 % (36.0-45.0); Lymphocytes % 39.5 % (15.3-44.8); MPV 7.1 fL (7.6-11.3); RBC Red Blood Cell Count 2.92 M/uL (3.86-4.86)
[2021-07-27 18:54] LABS: BUN Blood Urea Nitrogen 6 mg/dL (7-18); Bicarbonate 25 mmol/L (21-32); Glucose Level 77 mg/dL (74-106); Potassium 3.8 mmol/L (3.5-5.1); Sodium Level 143 mmol/L (136-145)
[2021-07-27] MEDS ORDERED: NA CHLORIDE 0.9% 250 ML ONE (20:30)
[2021-07-27] MEDS ORDERED: ACETAMINOPHEN 325 MG TABLET ONE (20:37)
[2021-07-27] MEDS ORDERED: DIPHENHYDRAMINE 50 MG/ML VIAL ONE (20:38)
--- NOTE | 2021-07-28 01:11 | ER ---
Nurse's Notes [facility] Name: Jesenia Claire Age: 35 yrs Sex: Female : 1985 Arrival Date: 07/27/2021 Time: 17:13 Bed 7 Private MD: Rich Carbajal Diagnosis: Anemia, unspecified Presentation: 07/27 17:24 Chief complaint: Patient states: "I saw Dr. Carbajal today and he did labs and they said aa5 my hemoglobin was 5.3". pt c/o chest pain and feeling weak. Coronavirus screen: At this time, the client does not indicate any symptoms associated with coronavirus-19. Ebola Screen: No symptoms or risks identified at this time. Initial Sepsis Screen: Does the patient meet any 2 criteria? No. Patient's initial sepsis screen is negative. Does the patient have a suspected source of infection? No. Patient's initial sepsis screen is negative. Risk Assessment: Do you want to hurt yourself or someone else? Patient reports no desire to harm self or others. Onset of symptoms was July 27, 2021. 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 - Social history:: Smoking status: Patient denies any tobacco usage or history of. Screenin:34 Abuse screen: Denies threats or abuse. Denies injuries from another. Nutritional jh5 screening: No deficits noted. 19:33 Tuberculosis screening: No symptoms or risk factors identified. Fall Risk None lp1 identified. Assessment: 17:33 General: Appears in no apparent distress. comfortable, Behavior is calm, cooperative, jh5 appropriate for age. Pain: Denies pain. Neuro: No deficits noted. Level of Consciousness is awake, alert, obeys commands, Oriented to person, place, time, situation, Appropriate for age. Cardiovascular: Capillary refill < 3 seconds Patient's skin is warm and dry. Respiratory: No deficits noted. Airway is patent Trachea midline Respiratory effort is even, unlabored, Respiratory pattern is regular, symmetrical. 19:32 Reassessment: Patient aware of waiting for blood to be ready for transfusion; signing lp1 consent at this time. Neuro: Level of Consciousness is awake, alert, obeys commands. Respiratory: Respiratory effort is even, unlabored. Derm: Skin is intact, Skin is dry, Skin is pale. 20:30 Reassessment: At bedside for start of blood transfusion, 1st unit. lp1 21:00 Reassessment: Patient appears in no apparent distress at this time. Patient resting, lp1 eyes closed, respirations even unlabored. 22:25 Reassessment: Patient appears in no apparent distress at this time. 1st unit of PRBC lp1 completed, patient resting, eyes closed, respirations even, unlabored. 23:00 Reassessment: Patient appears in no apparent distress at this time. Patient resting, lp1 eyes closed, respirations even, unlabored; Nurse at bedside for beginning of 2nd unit of PRBC. 07/28 00:20 Reassessment: Verbal order from Provider for post 2 hour H/H after 2nd PRBC unit lp1 completed. 00:45 Reassessment: Patient appears in no apparent distress at this time. Patient is alert, lp1 oriented x 3, equal unlabored respirations, skin warm/dry/pink. Patient ambulated independently to bathroom. 01:02 Reassessment: Verbal order to draw H/H at 0130. lp1 Vital Signs: 07/27 17:24 BP 126 / 61; Pulse 79; Resp 16 S; Temp 98.7(O); Pulse Ox 94% ; Weight 77.11 kg (R); aa5 Height 5 ft. 0 in. (152.40 cm) (R); 19:53 BP 104 / 61; Pulse 82; Resp 18; Temp 98.6(O); Pulse Ox 100% on R/A; Pain 0/10; kc4 20:30 BP 108 / 57; Pulse 87; Resp 18; Temp 98.6(TE); Pulse Ox 100% on R/A; lp1 22:25 BP 119 / 66; Pulse 85; Resp 16; Temp 98.4; Pulse Ox 100% on R/A; lp1 23:00 lp1 07/28 00:30 BP 108 / 65; Pulse 77; Resp 16; Temp 98.3; Pulse Ox 100% on R/A; lp1 07/27 17:24 Body Mass Index 33.20 (77.11 kg, 152.40 cm) aa5 07/27 20:30 1st unit of blood transfusion began at this time; See Transfusion Flowsheet for further lp1 vitals 22:25 Completion of 1st unit at this time lp1 23:00 See Transfusion Flowsheet for further vitals lp1 07/28 00:30 2nd unit PRBC completed at this time lp1 [place] Coma Score: 07/27 19:57 Eye Response: spontaneous(4). Verbal Response: oriented(5). Motor Response: obeys kc4 commands(6). Total: 15. ED Course: 17:13 Patient arrived in ED. ds1 17:14 Rich Carbajal MD is Private Physician. ds1 17:24 Arm band placed on. aa5 17:25 Triage completed. aa5 17:32 Brionna Garcia, RN is Primary Nurse. jh5 17:33 Simba Cooper [facility] jr8 17:33 Ladarius Jones MD is Attending Physician. jr8 18:27 Basic Metabolic Panel Sent. jh5 18:27 CBC with Diff Sent. jh5 19:33 Patient has correct armband on for positive identification. lp1 19:38 Primary Nurse role handed off by Brionna Garcia, RN mw2 19:42 Negrita Claire, AAMIR is Primary Nurse. lp1 19:57 Pulse ox on. NIBP on. Door closed. Noise minimized. Lights dimmed. Warm blanket given. kc4 19:57 No provider procedures requiring assistance completed. Inserted saline lock: 18 gauge kc4 in left antecubital area, using aseptic technique. 07/28 01:05 IV discontinued, No redness/swelling at site. Pressure dressing applied. lp1 01:11 Rich Carbajal MD is Referral Physician. jr8 01:31 Repeat lab(s) drawn. by ga, sent to lab. lp1 Administered Medications: 07/27 20:40 Drug: Tylenol 650 mg {Note: Per transfusion orders.} Route: PO; lp1 21:19 Follow up: Response: No adverse reaction lp1 20:40 Drug: Benadryl (diphenhydrAMINE) 12.5 mg {Note: Per Transfusion orders.} Route: IVP; lp1 Site: left antecubital; 21:20 Follow up: Response: No adverse reaction lp1 Outcome: 07/28 01:11 Discharge ordered by MD. atkinson 01:54 Discharged to home ambulatory, with significant other. lp1 01:54 Condition: good 01:54 Discharge instructions given to patient, Instructed on discharge instructions, follow up and referral plans. medication usage, Demonstrated understanding of instructions, follow-up care, medications, Prescriptions given X 1. 01:54 Patient left the ED. lp1 Signatures: Dulce Meza ds1 Tabby Roach, RN RN aa5 Negrita Claire RN RN lp1 Simba Cooper PA PA jr8 Annie Salcedo mw2 Xochilt Robison kc4 Brionna Garcia, RN RN jh5 Corrections: (The following items were deleted from the chart) 01:06 01:06 Discharged to home ambulatory, with significant other, lp1 lp1 01:06 01:06 Condition: good lp1 lp1 01:06 01:06 Discharge instructions given to patient, Instructed on discharge instructions, lp1 follow up and referral plans. Demonstrated understanding of instructions, follow-up care, lp1
--- NOTE | 2021-07-28 01:11 | EDPHYS ---
Physician Documentation [facility] Name: Jesenia Claire Age: 35 yrs Sex: Female : 1985 Arrival Date: 07/27/2021 Time: 17:13 Bed 7 Private MD: Rich Carbajal ED Physician Ladarius Jones HPI: 07/27 18:29 This 35 yrs old Female presents to ER via Ambulatory with complaints of Sent jr8 By Provider-Blood Transfusion. 18:29 This is a 35-year-old female that presented to the emergency room for blood jr8 transfusion. Patient was seen by her internal medicine physician and had blood work drawn today for increased weakness, fatigue, shortness of breath. Patient has a history of anemia with transfusions in the past. Post blood work today was found that her hemoglobin was 5.3. Patient was sent to emergency room for transfusion initiation at that time.. 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 - Social history:: Smoking status: Patient denies any tobacco usage or history of. ROS: 18:29 Eyes: Negative for injury, pain, redness, and discharge, ENT: Negative for injury, jr8 pain, and discharge, Neck: Negative for injury, pain, and swelling, Cardiovascular: Negative for chest pain, palpitations, and edema, Abdomen/GI: Negative for abdominal pain, nausea, vomiting, diarrhea, and constipation, Back: Negative for injury and pain, MS/Extremity: Negative for injury and deformity, Skin: Negative for injury, rash, and discoloration. 18:29 Constitutional: Positive for fatigue, malaise. 18:29 Respiratory: Positive for dyspnea on exertion. 18:29 Neuro: Positive for dizziness. Exam: 18:29 Head/Face: Normocephalic, atraumatic. jr8 18:29 ENT: Nares patent. No nasal discharge, no septal abnormalities noted. Tympanic membranes are normal and external auditory canals are clear. Oropharynx with no redness, swelling, or masses, exudates, or evidence of obstruction, uvula midline. Mucous membranes moist. Neck: Trachea midline, no thyromegaly or masses palpated, and no cervical lymphadenopathy. Supple, full range of motion without nuchal rigidity, or vertebral point tenderness. No Meningismus. Cardiovascular: Regular rate and rhythm with a normal S1 and S2. No gallops, murmurs, or rubs. Normal PMI, no JVD. No pulse deficits. Respiratory: Lungs have equal breath sounds bilaterally, clear to auscultation and percussion. No rales, rhonchi or wheezes noted. No increased work of breathing, no retractions or nasal flaring. Abdomen/GI: Soft, non-tender, with normal bowel sounds. No distension or tympany. No guarding or rebound. No evidence of tenderness throughout. Back: No spinal tenderness. No costovertebral tenderness. Full range of motion. Skin: Warm, dry with normal turgor. Normal color with no rashes, no lesions, and no evidence of cellulitis. MS/ Extremity: Pulses equal, no cyanosis. Neurovascular intact. Full, normal range of motion. Neuro: Awake and alert, GCS 15, oriented to person, place, time, and situation. Cranial nerves II-XII grossly intact. Motor strength 5/5 in all extremities. Sensory grossly intact. 18:29 Eyes: Periorbital structures: appear normal, Pupils: equal, round, and reactive to light and accomodation, Extraocular movements: intact throughout, Conjunctiva: pale, bilaterally, Corneas: are normal, Sclera: no appreciated abnormality, Anterior chamber: normal, Lids and lashes: appear normal. Vital Signs: 17:24 BP 126 / 61; Pulse 79; Resp 16 S; Temp 98.7(O); Pulse Ox 94% ; Weight 77.11 kg (R); aa5 Height 5 ft. 0 in. (152.40 cm) (R); 19:53 BP 104 / 61; Pulse 82; Resp 18; Temp 98.6(O); Pulse Ox 100% on R/A; Pain 0/10; kc4 20:30 BP 108 / 57; Pulse 87; Resp 18; Temp 98.6(TE); Pulse Ox 100% on R/A; lp1 22:25 BP 119 / 66; Pulse 85; Resp 16; Temp 98.4; Pulse Ox 100% on R/A; lp1 23:00 lp1 07/28 00:30 BP 108 / 65; Pulse 77; Resp 16; Temp 98.3; Pulse Ox 100% on R/A; lp1 07/27 17:24 Body Mass Index 33.20 (77.11 kg, 152.40 cm) aa5 07/27 20:30 1st unit of blood transfusion began at this time; See Transfusion Flowsheet for further lp1 vitals 22:25 Completion of 1st unit at this time lp1 23:00 See Transfusion Flowsheet for further vitals lp1 07/28 00:30 2nd unit PRBC completed at this time lp1 Ward Coma Score: 07/27 19:57 Eye Response: spontaneous(4). Verbal Response: oriented(5). Motor Response: obeys kc4 commands(6). Total: 15. MDM: 17:47 Patient medically screened. 8 07/28 01:10 Data reviewed: vital signs, nurses notes, lab test result(s), and as a result, I will jr8 discharge patient. Data interpreted: Pulse oximetry: on room air is 100 %. Interpretation: normal. Counseling: I had a detailed discussion with the patient and/or guardian regarding: the historical points, exam findings, and any diagnostic results supporting the discharge/admit diagnosis, lab results, the need for outpatient follow up, a family practitioner, to return to the emergency department if symptoms worsen or persist or if there are any questions or concerns that arise at home. Response to treatment: the patient's symptoms have markedly improved after treatment. 07/27 17:33 Order name: CBC with Diff; Complete Time: 19:13 [facility] 07/27 17:33 Order name: Basic Metabolic Panel; Complete Time: 20:34 8 07/27 17:33 Order name: IV; Complete Time: 18:27 8 07/27 18:14 Order name: Labs - recollect needed: recollect green and lavender top; Complete Time: bd 18:07/28 01:09 Order name: Hemoglobin; Complete Time: 08:08 1 07/28 01:09 Order name: Hematocrit; Complete Time: 08:08 lp1 Administered Medications: 07/27 20:40 Drug: Tylenol 650 mg {Note: Per transfusion orders.} Route: PO; lp1 21:19 Follow up: Response: No adverse reaction lp1 20:40 Drug: Benadryl (diphenhydrAMINE) 12.5 mg {Note: Per Transfusion orders.} Route: IVP; lp1 Site: left antecubital; 21:20 Follow up: Response: No adverse reaction lp1 Disposition: 07/28 08:13 Co-signature as Attending Physician, Ladarius Jones MD I agree with the assessment and kdr plan of care. Disposition Summary: 07/28/21 01:11 Discharge Ordered Location: Home jr8 Problem: new jr8 Symptoms: have improved jr8 Condition: Stable jr8 Diagnosis - Anemia, unspecified jr8 Followup: jr8 - With: Rich Carbajal MD - When: 2 - 3 days - Reason: Recheck today's complaints, Continuance of care, Re-evaluation by your physician Discharge Instructions: - Discharge Summary Sheet jr8 - Anemia jr8 Forms: - Medication Reconciliation Form jr8 - Thank You Letter jr8 - Antibiotic Education jr8 - Prescription Opioid Use jr8 Prescriptions: - Ferrous Sulfate 325 mg (65 mg Iron) Oral Tablet - take 1 tablet by ORAL route every 8 hours; 90 tablet; Refills: 0, Product jr8 Selection Permitted Signatures: Dispatcher [employer] EDMS Estela Valero Kevin, MD MD kdr Chad Pena MD MD rn Tabby Roach RN RN aa5 Negrita Claire RN RN lp1 Simba Cooper PA PA jr8 Corrections: (The following items were deleted from the chart) 07/27 17:34 17:34 TYPE AND SCREEN+BB.LAB.BRZ ordered. EDMS EDMS 18:27 18:01 BB Add On+BB.LAB.BRZ ordered. EDMS EDMS 19:36 19:14 PACKED RBC LEUKORED -1+BB.LAB.BRZ ordered. EDMS EDMS 19:36 19:15 ABO/RH typing ordered. EDMS EDMS 19:36 19:15 Antibody Screen ordered. EDMS EDMS
[2021-07-28 01:41] LABS: Hematocrit 23.9 % (36.0-45.0)
[2021-07-28 02:01] VITALS: O2SAT 100
[2021-07-28 02:05] VITALS: BP 108/65; TEMP 98.3
== END 2021-07-28 01:54 | disposition home or self-care (01) ==
LOC: ER 17:07
PROC: 30233N1 Transfusion of Nonautologous Red Blood Cells into Peripheral Vein, Percutaneous Approach (ICD-10-PCS; principal; 2021-07-28)
DX: D64.9 Anemia, unspecified (principal)
CPT/HCPCS: 85025; 80048; 36415; 85018; 85014; 96374; 99284; 36430; J1200; J7050

== ENCOUNTER 2022-01-16 02:23 | Emergency (ER) | payer OTHER, SELFPAY ==
[2022-01-16] MEDS ORDERED: ETOMIDATE 20 MG/10 ML VIAL IV ONE (02:24)
[2022-01-16] MEDS ORDERED: SUCCINYLCHOLINE 20 MG/ML (10 ML) IV ONE (02:24)
--- OUTSIDE RECORDS SUMMARY | 2022-01-16 02:27 | XMS REPORT | Continuity of Care Document ---
:1985 Author Organization [facility] t Address [address] [place] [address] Care Team Providers Name Role Phone John Powell DO Attending Clinician Amanda ESPINOZAP, C Attending Clinician AMANDA C Attending Clinician Unavailable David BENSON, R Attending Clinician Doctor Unassigned, Name Attending Clinician Unavailable Payers Payer Name Policy Type Policy Number Effective Date Expiration Date S ource Problems Condition Condition Condition Status Onset Resolution Last Treating Co mments Source Name Details Category Date Date Treatment Clinician Date Other Other Disease Active Overview: Univer s secondary secondary 05-20 [facility] ty [facility] hypertens[place] hypertens[place] hypertens Medical ion Branch currently on diamox Well woman Well woman Disease Active 2019 U nivers exam exam 16 ity of 00:00: [address] Contracept Contracept Disease Active 2019 U nivers lesley lesley 16 ity of management management [place]: [place] [facility] [place] Abnormal Abnormal Disease Active 2019 Overview: [facility] uterine uterine 05-20 [place] of bleeding bleeding 00:00[place] 00 q3 months Medical [facility] History of History of Disease Active 2019 U nivers anxiety anxiety 16 ity of 00:00: [place] [id number] Medical Branch Tobacco Tobacco Disease Active 2019 Univers use use 916 ity of disorder disorder 00:00: [address] Contracept Contracept Disease Active 2019-0 U nivers lesley lesley 9-16 ity of management management [place] 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 0-22 ity of syndrome syndrome 00:00: [place] 00 Medical Branch Obesity, Obesity, Disease Active 2016-09 Unive rs Class III, Class III, 0-22 it y of BMI BMI 00:00: [place] 40-49.9 40-49.9 00 Medical (morbid (morbid Branch obesity) obesity) Allergies, Adverse Reactions, Alerts Allergy Allergy Status Severity Reaction(s) Onset Inactive Treating Comm ents Source Name Type Date Date Clinician Avocado Propensi Active Anaphylaxis 2012-09 [facility] (Laurus ty to 2- ity of [place]) adverse 00:00: [place] reaction 00 Medical s Branch AVOCADO Drug Active High Anaphylaxis 2012-09 Univ ers (LAURUS Class 2- ity of [place]) 00:00: [place] 00 Medical Branch Banana Propensi Active Swelling Univer s ty to 2- ity of adverse 00:00: [place] reaction 00 Medical s Branch BANANA DRUG Active High ITCHING Univers INGREDI 2-26 ity of 00:00: [place] 00 Medical Branch NO KNOWN Drug Active Univers ALLERGIE Class ity of S [facility] Social History Social Habit Start Date Stop Date Quantity Comments Source History of tobacco 2017-05-20 Cigarette Smoker University of use 00:00:00 [facility] Cigarettes smoked 2020-03-05 2020-03-05 Univers ity of current (pack per 00:00:00 00:00:00 ) - Reported Branch Alcohol intake 2020-03-05 2020-03-05 Ex-drinker University 00:00:00 00:00:00 (finding) [facility] Tobacco use and 2020-03-05 2020-03-05 Never used Universit y of exposure 00:00:00 00:00:00 [facility] [birth year] Universit y of 00:00:00 00:00:00 [facility] Smoking Status Start Date Stop Date Source Current every day smoker 2020-03-05 00:00:00 Uni versity of [facility] Medications Ordered Filled Start Stop Current Ordering Indication Dosage Frequency Signature Comments Components Source Medication Medication Date Date Medication? Clinician (SIG) Name Name ACYCLOVIR 2020-1 Yes [id number] TAKE 1 [facility] 400 mg 2-07 TABLET BY ity of tablet 00:00: MOUTH THREE Medical TIMES Branch DAILY FOR 7 DAYS ACYCLOVIR 2020-1 Yes [id number] TAKE 1 [facility] [place] 400 mg 2-07 TABLET BY ity of tablet 00:00: MOUTH THREE Medical TIMES Branch DAILY FOR 7 DAYS ACYCLOVIR 2020-1 Yes [id number] TAKE 1 [facility] [place] 400 mg 2-07 TABLET BY ity of tablet 00:00: MOUTH THREE Medical TIMES Branch DAILY FOR 7 DAYS metroNIDAZO 2020-0 Yes [id number] 500mg Take 1 Univers LE 500 mg 7-06 tablet by ity o f tablet 00:00: mouth (two) Medical times Branch daily. metroNIDAZO 2020-0 Yes [id number] 500mg Take 1 Univers LE 500 mg 7-06 tablet by ity o f tablet 00:00: mouth (two) Medical times Branch daily. metroNIDAZO 2020-0 Yes [id number] 500mg Take 1 Univers LE 500 mg 7-06 tablet by ity o f tablet 00:00: mouth (two) Medical times Branch daily. metroNIDAZO 2020-0 Yes [id number] 500mg Take 1 Univers LE 500 mg 7-06 tablet by ity o f tablet 00:00: mouth (two) Medical times Branch daily. metroNIDAZO 2020-0 Yes [id number] 500mg Take 1 Univers LE 500 mg 7-06 tablet by ity o f tablet 00:00: mouth (two) Medical times Branch daily. metroNIDAZO 2020-0 Yes [id number] 500mg Take 1 Univers LE 500 mg 7-06 tablet by ity o f tablet 00:00: mouth (two) Medical times Branch daily. metroNIDAZO 2020-0 Yes [id number] 500mg Take 1 Univers LE 500 mg 7-06 tablet by ity o f tablet 00:00: mouth (two) Medical times Branch daily. metroNIDAZO 2020-0 Yes [id number] 500mg Take 1 Univers LE 500 mg 7-06 tablet by ity o f tablet 00:00: mouth (two) Medical times Branch daily. ACYCLOVIR 2020-0 Yes [id number] TAKE 1 [facility] 400 mg 6-30 TABLET BY ity of tablet 00:00: MOUTH [place] 00 THREE Medical TIMES Branch DAILY FOR 7 DAYS ACYCLOVIR 2020-0 Yes [id number] TAKE 1 [facility] 400 mg 6-30 TABLET BY ity of tablet 00:00: MOUTH [place] 00 THREE Medical TIMES Branch DAILY FOR 7 DAYS ACYCLOVIR 2020-0 Yes [id number] TAKE 1 [facility] 400 mg 6-30 TABLET BY ity of tablet 00:00: MOUTH [place] THREE Medical TIMES Branch DAILY FOR 7 DAYS ACYCLOVIR 2020-0 Yes [id number] TAKE 1 [facility] 400 mg 6-30 TABLET BY ity of tablet 00:00: MOUTH [place] THREE Medical TIMES Branch DAILY FOR 7 DAYS ACYCLOVIR 2020-0 Yes [id number] TAKE 1 [facility] 400 mg 6-30 TABLET BY ity of tablet 00:00: MOUTH [place] THREE Medical TIMES Branch DAILY FOR 7 DAYS ACYCLOVIR 2020-0 Yes [id number] TAKE 1 [facility] 400 mg 6-30 TABLET BY ity of tablet 00:00: MOUTH [place] THREE Medical TIMES Branch DAILY FOR 7 DAYS ACYCLOVIR 2020-0 Yes [id number] TAKE 1 [facility] 400 mg 6-30 TABLET BY ity of tablet 00:00: MOUTH [place] THREE Medical TIMES Branch DAILY FOR 7 DAYS ACYCLOVIR 2020-0 Yes [id number] TAKE 1 [facility] 400 mg 6-30 TABLET BY ity of tablet 00:00: MOUTH [place] THREE Medical TIMES Branch DAILY FOR 7 DAYS ACYCLOVIR 2020-0 Yes [id number] TAKE 1 [facility] 400 mg 6-30 TABLET BY ity of tablet 00:00: MOUTH [place] THREE Medical TIMES Branch DAILY FOR 7 DAYS ACYCLOVIR 2020-0 2020- No [id number] TAKE 1 U nivers 400 mg 6-30 12-07 TABLET BY ity of tablet 00:00: 00:00 MOUTH [place] 00 :00 THREE Medical TIMES Branch DAILY FOR 7 DAYS ACYCLOVIR 2020-0 Yes [id number] TAKE 1 [facility] 400 mg 5-26 TABLET BY ity of tablet 00:00: MOUTH [place] 00 THREE Medical TIMES Branch DAILY FOR 7 DAYS ACYCLOVIR 2020-0 Yes [id number] TAKE 1 [facility] 400 mg 5-26 TABLET BY ity of tablet 00:00: MOUTH [place] THREE Medical TIMES Branch DAILY FOR 7 DAYS ACYCLOVIR 2020-0 2020- No [id number] TAKE 1 U nivers 400 mg 5-26 06-30 TABLET BY ity of tablet 00:00: 00:00 MOUTH [place] 00 :00 THREE Medical TIMES Branch DAILY FOR 7 DAYS fluconazole 2020- No [id number] 150mg Take 1 Univers (DIFLUCAN) 12-08- tablet by ity of 150 mg 00:00: 04:59 mouth [place] tablet 00 :00 now for 1 Medical dose. Branch fluconazole 2020- No [id number] 150mg Take 1 Univers (DIFLUCAN) 12-08- tablet by ity of 150 mg 00:00: 04:59 mouth [place] tablet 00 :00 now for 1 Medical dose. Branch ACYCLOVIR 2018-09 Yes [id number] TAKE 1 [facility] 400 mg 1-18 TABLET BY ity of tablet 00:00: MOUTH [place] 00 THREE Medical TIMES Branch DAILY FOR 7 DAYS ACYCLOVIR 2018-09 Yes [id number] TAKE 1 [facility] 400 mg 1-18 TABLET BY ity of tablet 00:00: MOUTH [place] 00 THREE Medical TIMES Branch DAILY FOR 7 DAYS ACYCLOVIR 2018-09 Yes [id number] TAKE 1 [facility] 400 mg 1-18 TABLET BY ity of tablet 00:00: MOUTH [place] 00 THREE Medical TIMES Branch DAILY FOR 7 DAYS ACYCLOVIR 2018-09 2020- No [id number] TAKE 1 U nivers 400 mg 1-18 05-26 TABLET BY ity of tablet 00:00: 00:00 MOUTH [place] 00 :00 THREE Medical TIMES Branch DAILY FOR 7 DAYS acetaZOLAMI 2018- Yes [id number] 500mg Take 500 Univers DE (DIAMOX 9-16 mg by ity of SEQUELS) 14:23: mouth 2 [place] 500 mg 07 (two) Medical capsule times Branch daily. MULTIVITAMI 2019- Yes [id number] Take by Univers N ORAL 9-16 mouth. ity of 14:23: [place] 07 Medical Branch cyanocobala 2018- Yes Inject as Univers min, 05-20 directed ity of vitamin 14:23: weekly. [place] B-12, (B12 07 Medical COMPLIANCE Branch INJECTION) NaCl 0.9% 2018- Yes by IV Univers (NS) SolP 05-20 Infusion ity of 250 mL with 14:23: route once [place] iron 07 now. Medical sucrose 100 Indication Br anch mg iron/5 s: every 3 mL Soln months for anemia acetaZOLAMI 2019-0 Yes [id number] 500mg Take 500 Univers DE (DIAMOX 9-16 mg by ity of SEQUELS) 14:23: mouth 2 [place] 500 mg 07 (two) Medical capsule times Branch daily. MULTIVITAMI 20190 Yes [id number] Take by Univers N ORAL 9-16 mouth. ity of 14:23: [address] cyanocobala Yes Inject as Univers min, 9-16 directed ity of vitamin 14:23: weekly. [place] B-12, (B-12 07 Medical COMPLIANCE Branch INJECTION) NaCl 0.9% Yes by IV Univers (NS) SolP 9-16 Infusion ity of 250 mL with 14:23: route once [place] iron 07 now. Medical sucrose 100 Indication Br anch mg iron/5 s: every 3 mL Soln months for anemia acetaZOLAMI 2019 Yes [id number] 500mg Take 500 Univers DE (DIAMOX 9-16 mg by ity of SEQUELS) 14:23: mouth 2 [place] 500 mg 07 (two) Medical capsule times Branch daily. MULTIVITAMI Yes [id number] Take by Univers N ORAL 9-16 mouth. ity of 14:23: [address] cyanocobala Yes Inject as Univers min, 916 directed ity of vitamin 14:23: weekly. [place] B-12, (B-12 07 Medical COMPLIANCE Branch INJECTION) NaCl 0.9% Yes by IV Univers (NS) SolP 916 Infusion ity of 250 mL with 14:23: route once [place] iron 07 now. Medical sucrose 100 Indication Br anch mg iron/5 s: every 3 mL Soln months for anemia acetaZOLAMI 20190 Yes [id number] 500mg Take 500 Univers DE (DIAMOX 9-16 mg by ity of SEQUELS) 14:23: mouth 2 [place] 500 mg 07 (two) Medical capsule times Branch daily. MULTIVITAMI 20190 Yes [id number] Take by Univers N ORAL 9-16 mouth. ity of 14:23: [address] cyanocobala Yes Inject as Univers min, 9-16 directed ity of vitamin 14:23: weekly. [place] B-12, (B-12 07 Medical COMPLIANCE Branch INJECTION) NaCl 0.9% Yes by IV Univers (NS) SolP 9-16 Infusion ity of 250 mL with 14:23: route once [place] iron 07 now. Medical sucrose 100 Indication Br anch mg iron/5 s: every 3 mL Soln months for anemia acetaZOLAMI Yes [id number] 500mg Take 500 Univers DE (DIAMOX 9-16 mg by ity of SEQUELS) 14:23: mouth 2 [place] 500 mg 07 (two) Medical capsule times Branch daily. MULTIVITAMI Yes [id number] Take by Univers N ORAL 9-16 mouth. ity of 14:23: [address] Branch cyanocobala Yes Inject as Univers min, 16 directed ity of vitamin 14:23: weekly. [place] B-12, (B-12 07 Medical COMPLIANCE Branch INJECTION) NaCl 0.9% Yes by IV Univers (NS) SolP 9-16 Infusion ity of 250 mL with 14:23: route once [place] iron 07 now. Medical sucrose 100 Indication Br anch mg iron/5 s: every 3 mL Soln months for anemia acetaZOLAMI Yes [id number] 500mg Take 500 Univers DE (DIAMOX 9-16 mg by ity of SEQUELS) 14:23: mouth 2 [place] 500 mg 07 (two) Medical capsule times Branch daily. MULTIVITAMI Yes [id number] Take by Univers N ORAL 9-16 mouth. ity of 14:23: [address] cyanocobala Yes Inject as Univers min, 16 directed ity of vitamin 14:23: weekly. [place] B-12, (B-12 07 Medical COMPLIANCE Branch INJECTION) NaCl 0.9% Yes by IV Univers (NS) SolP 916 Infusion ity of 250 mL with 14:23: route once [place] iron 07 now. Medical sucrose 100 Indication Br anch mg iron/5 s: every 3 mL Soln months for anemia acetaZOLAMI Yes [id number] 500mg Take 500 Univers DE (DIAMOX 9-16 mg by ity of SEQUELS) 14:23: mouth 2 [place] 500 mg 07 (two) Medical capsule times Branch daily. MULTIVITAMI 2019 Yes [id number] Take by Univers N ORAL 9-16 mouth. ity of 14:23: [address] cyanocobala Yes Inject as Univers min, 05-20 directed ity of vitamin 14:23: weekly. [place] B-12, (B-12 07 Medical COMPLIANCE Branch INJECTION) NaCl 0.9% Yes by IV Univers (NS) SolP 9-16 Infusion ity of 250 mL with 14:23: route once [place] iron 07 now. Medical sucrose 100 Indication Br anch mg iron/5 s: every 3 mL Soln months for anemia acetaZOLAMI Yes [id number] 500mg Take 500 Univers DE (DIAMOX 9-16 mg by ity of SEQUELS) 14:23: mouth 2 [place] 500 mg 07 (two) Medical capsule times Branch daily. MULTIVITAMI Yes [id number] Take by Univers N ORAL 9-16 mouth. ity of 14:23: [address] cyanocobala Yes Inject as Univers min, 16 directed ity of vitamin 14:23: weekly. [place] B-12, (B-12 07 Medical COMPLIANCE Branch INJECTION) NaCl 0.9% Yes by IV Univers (NS) SolP 916 Infusion ity of 250 mL with 14:23: route once [place] iron 07 now. Medical sucrose 100 Indication Br anch mg iron/5 s: every 3 mL Soln months for anemia acetaZOLAMI Yes [id number] 500mg Take 500 Univers DE (DIAMOX 9-16 mg by ity of SEQUELS) 14:23: mouth 2 [place] 500 mg 07 (two) Medical capsule times Branch daily. MULTIVITAMI Yes [id number] Take by Univers N ORAL 9-16 mouth. ity of 14:23: [address] [place] [address] cyanocobala Yes Inject as Univers min, 16 directed ity of vitamin 14:23: weekly. [place] B-12, (B-12 07 Medical COMPLIANCE Branch INJECTION) NaCl 0.9% Yes by IV Univers (NS) SolP 916 Infusion ity of 250 mL with 14:23: route once [place] iron 07 now. Medical sucrose 100 Indication Br anch mg iron/5 s: every 3 mL Soln months for anemia acetaZOLAMI Yes [id number] 500mg Take 500 Univers DE (DIAMOX 9-16 mg by ity of SEQUELS) 14:23: mouth 2 [place] 500 mg 07 (two) Medical capsule times Branch daily. MULTIVITAMI 2019-0 Yes [id number] Take by Univers N ORAL 9-16 mouth. ity of 14:23: [address] cyanocobala Yes Inject as Univers min, 16 directed ity of vitamin 14:23: weekly. [place] B-12, (B-12 07 Medical COMPLIANCE Branch INJECTION) NaCl 0.9% 2018- Yes by IV Univers (NS) SolP 916 Infusion ity of 250 mL with 14:23: route once [place] iron 07 now. Medical sucrose 100 Indication Br anch mg iron/5 s: every 3 mL Soln months for anemia acetaZOLAMI 2019 Yes [id number] 500mg Take 500 Univers DE (DIAMOX 9-16 mg by ity of SEQUELS) 14:23: mouth 2 [place] 500 mg 07 (two) Medical capsule times Branch daily. MULTIVITAMI Yes [id number] Take by Univers N ORAL 9-16 mouth. ity of 14:23: [address] cyanocobala Yes Inject as Univers min, 05-20 directed ity of vitamin 14:23: weekly. [place] B-12, (B-12 07 Medical COMPLIANCE Branch INJECTION) NaCl 0.9% Yes by IV Univers (NS) SolP 916 Infusion ity of 250 mL with 14:23: route once [place] iron 07 now. Medical sucrose 100 Indication Br anch mg iron/5 s: every 3 mL Soln months for anemia acetaZOLAMI 20190 Yes [id number] 500mg Take 500 Univers DE (DIAMOX 9-16 mg by ity of SEQUELS) 14:23: mouth 2 [place] 500 mg 07 (two) Medical capsule times Branch daily. MULTIVITAMI 20190 Yes [id number] Take by Univers N ORAL 9-16 mouth. ity of 14:23: [address] cyanocobala Yes Inject as Univers min, 916 directed ity of vitamin 14:23: weekly. [place] B-12, (B-12 07 Medical COMPLIANCE Branch INJECTION) NaCl 0.9% Yes by IV Univers (NS) SolP 916 Infusion ity of 250 mL with 14:23: route once [place] iron 07 now. Medical sucrose 100 Indication Br anch mg iron/5 s: every 3 mL Soln months for anemia acetaZOLAMI 2019-0 Yes [id number] 500mg Take 500 Univers DE (DIAMOX 9-16 mg by ity of SEQUELS) 14:23: mouth 2 [place] 500 mg 07 (two) Medical capsule times Branch daily. MULTIVITAMI 2019 Yes [id number] Take by Univers N ORAL 9-16 mouth. ity of 14:23: [address] Branch cyanocobala Yes Inject as Univers min, 9-16 directed ity of vitamin 14:23: weekly. [place] B-12, (B-12 07 Medical COMPLIANCE Branch INJECTION) NaCl 0.9% Yes by IV Univers (NS) SolP 9-16 Infusion ity of 250 mL with 14:23: route once [place] iron 07 now. Medical sucrose 100 Indication Br anch mg iron/5 s: every 3 mL Soln months for anemia acetaZOLAMI Yes [id number] 500mg Take 500 Univers DE (DIAMOX 9-16 mg by ity of SEQUELS) 14:23: mouth 2 [place] 500 mg 07 (two) Medical capsule times Branch daily. MULTIVITAMI Yes [id number] Take by Univers N ORAL 9-16 mouth. ity of 14:23: [address] cyanocobala Yes Inject as Univers min, 9-16 directed ity of vitamin 14:23: weekly. [place] B-12, (B-12 07 Medical COMPLIANCE Branch INJECTION) NaCl 0.9% Yes by IV Univers (NS) SolP 9-16 Infusion ity of 250 mL with 14:23: route once [place] iron 07 now. Medical sucrose 100 Indication Br anch mg iron/5 s: every 3 mL Soln months for anemia acetaZOLAMI Yes [id number] 500mg Take 500 Univers DE (DIAMOX 9-16 mg by ity of SEQUELS) 14:23: mouth 2 [place] 500 mg 07 (two) Medical capsule times Branch daily. MULTIVITAMI 20190 Yes [id number] Take by Univers N ORAL 9-16 mouth. ity of 14:23: [address] cyanocobala Yes Inject as Univers min, 9-16 directed ity of vitamin 14:23: weekly. [place] B-12, (B-12 07 Medical COMPLIANCE Branch INJECTION) NaCl 0.9% Yes by IV Univers (NS) SolP 9-16 Infusion ity of 250 mL with 14:23: route once [place] iron 07 now. Medical sucrose 100 Indication Br anch mg iron/5 s: every 3 mL Soln months for anemia acetaZOLAMI 2019-0 Yes [id number] 500mg Take 500 Univers DE (DIAMOX 9-16 mg by ity of SEQUELS) 14:23: mouth 2 [place] 500 mg 07 (two) Medical capsule times Branch daily. MULTIVITAMI 20190 Yes [id number] Take by Univers N ORAL 9-16 mouth. ity of 14:23: [address] cyanocobala Yes Inject as Univers min, [...] Soln months for anemia acetaZOLAMI 2019 Yes [id number] 500mg Take 500 Univers DE (DIAMOX 9-16 mg by ity of SEQUELS) 14:23: mouth 2 [place] 500 mg 07 (two) Medical capsule times Branch daily. MULTIVITAMI 0 Yes [id number] Take by Univers N ORAL 9-16 mouth. ity of 14:23: [address] cyanocobala Yes Inject as Univers min, 16 directed ity of vitamin 14:23: weekly. [place] B-12, (B-12 07 Medical COMPLIANCE Branch INJECTION) NaCl 0.9% 2019 Yes by IV Univers (NS) SolP 916 Infusion ity of 250 mL with 14:23: route once [place] iron 07 now. Medical sucrose 100 Indication Br anch mg iron/5 s: every 3 mL Soln months for anemia acetaZOLAMI 2019-0 Yes [id number] 500mg Take 500 Univers DE (DIAMOX 9-16 mg by ity of SEQUELS) 14:23: mouth 2 [place] 500 mg 07 (two) Medical capsule times Branch daily. MULTIVITAMI 2019-0 Yes [id number] Take by Univers N ORAL 9-16 mouth. ity of 14:23: [address] cyanocobala Yes Inject as Univers min, 916 directed ity of vitamin 14:23: weekly. [place] B-12, ( Medical COMPLIANCE Branch INJECTION) NaCl 0.9% Yes by IV Univers (NS) SolP 9-16 Infusion ity of 250 mL with 14:23: route once [place] iron 07 now. Medical sucrose 100 Indication Br anch mg iron/5 s: every 3 mL Soln months for anemia acetaZOLAMI Yes [id number] 500mg Take 500 Univers DE (DIAMOX 9-16 mg by ity of SEQUELS) 14:23: mouth 2 [place] 500 mg 07 (two) Medical capsule times Branch daily. MULTIVITAMI Yes [id number] Take by Univers N ORAL 9-16 mouth. ity of 14:23: [place] 07 Medical Branch cyanocobala Yes Inject as Univers min, 16 directed ity of vitamin 14:23: weekly. [place] B-12, ( Medical COMPLIANCE Branch INJECTION) NaCl 0.9% Yes by IV Univers (NS) SolP 9-16 Infusion ity of 250 mL with 14:23: route once [place] iron 07 now. Medical sucrose 100 Indication Br anch mg iron/5 s: every 3 mL Soln months for anemia norethindro Yes [id number] 1{tbl} Take 1 Univers ne 0.35 mg 9-16 tablet by ity of tablet 00:00: mouth [place] 00 daily. Medical Branch norethindro Yes [id number] 1{tbl} Take 1 Univers ne 0.35 mg 9-16 tablet by ity of tablet 00:00: mouth [place] 00 daily. Medical Branch norethindro Yes [id number] 1{tbl} Take 1 Univers ne 0.35 mg 9-16 tablet by ity of tablet 00:00: mouth [place] 00 daily. Medical Branch norethindro Yes [id number] 1{tbl} Take 1 Univers ne 0.35 mg 9-16 tablet by ity of tablet 00:00: mouth [place] 00 daily. Medical Branch norethindro Yes [id number] 1{tbl} Take 1 Univers ne 0.35 mg 9-16 tablet by ity of tablet 00:00: mouth [place] 00 daily. Medical Branch norethindro Yes [id number] 1{tbl} Take 1 Univers ne 0.35 mg 9-16 tablet by ity of tablet 00:00: mouth [place] [id number]} Take 1 Univers ne 0.35 mg 9-16 tablet by ity of tablet 00:00: mouth [place] 00 [facility]. [facility] [id number] 1{tbl} Take 1 Univers ne 0.35 mg 9-16 tablet by ity of tablet 00:00: mouth [place] 00 [facility]. [facility] [id number] 1{tbl} Take 1 Univers ne 0.35 mg 9-16 tablet by ity of tablet 00:00: mouth [place] 00 daily. [facility] Yes [id number] 1{tbl} Take 1 Univers ne 0.35 mg 9-16 tablet by ity of tablet 00:00: mouth [place] 00 daily. [facility] Yes [id number] 1{tbl} Take 1 Univers ne 0.35 mg 9-16 tablet by ity of tablet 00:00: mouth [place] 00 daily. [facility] Yes [id number] 1{tbl} Take 1 Univers ne 0.35 mg 9-16 tablet by ity of tablet 00:00: mouth [place] 00 daily. [facility] Yes [id number] 1{tbl} Take 1 Univers ne 0.35 mg 9-16 tablet by ity of tablet 00:00: mouth [place] 00 daily. [facility] Yes [id number] 1{tbl} Take 1 Univers ne 0.35 mg 9-16 tablet by ity of tablet 00:00: mouth [place] 00 daily. [facility] [id number] 1{tbl} Take 1 Univers ne 0.35 mg 9-16 tablet by ity of tablet 00:00: mouth [place] 00 [facility]. [facility] [id number] 1{tbl} Take 1 Univers ne 0.35 mg 9-16 tablet by ity of tablet 00:00: mouth [place] 00 daily. [facility] Yes [id number] 1{tbl} Take 1 Univers ne 0.35 mg 9-16 tablet by ity of tablet 00:00: mouth [place] 00 daily. Medical Branch norethindro 2018-0 Yes [id number] 1{tbl} Take 1 Univers ne 0.35 mg 9-16 tablet by ity of tablet 00:00: mouth [place] 00 daily. Medical Branch norethindro 0 Yes [id number] 1{tbl} Take 1 Univers ne 0.35 mg 9-16 tablet by ity of tablet 00:00: mouth [place] 00 daily. Medical Branch acetaZOLAMI 2017- Yes [id number] 500mg Take 500 Univers DE (DIAMOX 0-23 mg by ity of SEQUELS) 00:11: mouth 2 [place] 500 mg 37 (two) Medical capsule times Branch daily. MULTIVITAMI 2016-09 Yes [id number] Take by Univers N ORAL 0-23 mouth. ity of 00:11: [place] 37 [facility] Branch Immunizations Ordered Immunization Filled Immunization Date Status Commen ts Source Name Name Meningococcal 2012-02-29 Completed University of Vaccine 00:00:00 [facility] Meningococcal 2012-02-29 Completed University of Vaccine 00:00:00 [facility] Meningococcal 2012-02-29 Completed University of Vaccine 00:00:00 [facility] Meningococcal 2012-02-29 Completed University of Vaccine 00:00:00 [facility] Meningococcal 2012-02-29 Completed University of Vaccine 00:00:00 [facility] Meningococcal 2012-02-29 Completed University of Vaccine 00:00:00 [facility] Meningococcal 2012-02-29 Completed University of Vaccine 00:00:00 [facility] Meningococcal 2012-02-29 Completed University of Vaccine 00:00:00 [facility] Meningococcal 2012-02-29 Completed University of Vaccine 00:00:00 [facility] Meningococcal 2012-02-29 Completed University of Vaccine 00:00:00 [facility] Meningococcal 2012-02-29 Completed University of Vaccine 00:00:00 [facility] Meningococcal 2012-02-29 Completed University of Vaccine 00:00:00 [facility] Meningococcal 2012-02-29 Completed University of Vaccine 00:00:00 [facility] Meningococcal 2012-02-29 Completed University of Vaccine 00:00:00 [facility] Meningococcal 2012-02-29 Completed University of Vaccine 00:00:00 [facility] Meningococcal 2012-02-29 Completed University of Vaccine 00:00:00 [facility] Meningococcal 2012-02-29 Completed University of Vaccine 00:00:00 [facility] Branch Tdap 2010-03-05 Completed University of 00:00:00 [facility] Branch TDAP 2010-03-05 Completed [facility] 00:[facility]:00 [facility] [facility] 2010-03-05 Completed [facility] 00:00:00 [facility] TDAP 2010-03-05 Completed [facility] 00:00:00 [facility] TDAP 2010-03-05 Completed [facility] 00:00:00 [facility] TDAP 2010-03-05 Completed [facility] 00:00:00 [facility] TDAP 2010-03-05 Completed [facility] 00:00:00 [facility] TDAP 2010-03-05 Completed [facility] 00:00:00 [facility] TDAP 2010-03-05 Completed [facility] 00:00:00 [facility] TDAP 2010-03-05 Completed [facility] 00:00:00 [facility] TDAP 2010-03-05 Completed [facility] 00:00:00 [facility] TDAP 2010-03-05 Completed [facility] 00:00:00 [facility] TDAP 2010-03-05 Completed [facility] 00:00:00 [facility] Tdap 2010-03-05 Completed [facility] 00:00:00 [facility] Tdap 2010-03-05 Completed [facility] 00:00:00 [facility] Tdap 2010-03-05 Completed [facility] 00:00:00 [facility] Tdap 2010-03-05 Completed [facility] 00:00:00 [facility] Vital Signs Vital Name Observation Time Observation Value Comments Source Systolic blood 2020-03-05 21:09:00 134 mm[Hg] Univer sity of pressure [facility] Diastolic blood 2020-03-05 21:09:00 81 mm[Hg] Unive rsity of pressure [facility] Heart rate 2020-03-05 21:09:00 79 /min [facility] Body temperature 2020-03-05 21:09:00 36.61 [facility] Respiratory rate 2020-03-05 21:09:00 16 /min [facility] Body height 2020-03-05 21:09:00 152.4 cm [facility] Body weight 2020-03-05 21:09:00 74.798 kg [facility] BMI 2020-03-05 21:09:00 32.20 kg/m2 [facility] Systolic blood 2019-05-20 14:14:00 121 mm[Hg] Univer sity of pressure [facility] Diastolic blood 2019-05-20 14:14:00 87 mm[Hg] Unive rsity of [facility] Heart rate 2019-05-20 14:14:00 82 /min [facility] Body temperature 2019-05-20 14:14:00 36.61 [facility] Respiratory rate 2019-05-20 14:14:00 16 /min [facility] Body height 2019-05-20 14:14:00 152.4 cm [facility] Body weight 2019-05-20 14:14:00 76.913 kg [facility] BMI 2019-05-20 14:14:00 33.12 kg/m2 [facility] Procedures Procedure Date / Time Performed Performing Clinician Sour e POCT TEST 2020-03-05 00:00:00 Marika Wright Uni versshanell of [facility] POCT URINALYSIS W/O 2020-03-05 00:00:00 Marika Wright Uni vershsanell [facility] SPECIFIC GRAVITY [facility] ASSIGNMENT OF BENEFITS 2019-05-20 13:58:59 Doctor Unassigned, No [facility] Encounters Start End Encounter Admission Attending Care Care Encounter Source Date/Time Date/Time Type Type Clinicians Facility Department ID 2020-11-23 2020-11-23 Patient Andre AKBELLA [id number] 00:00:00 00:00:00 Outreach Adonay PRIMARY [id number] i ty of [facility] 4.2.7.2.686 [place] [id number] Ms dical [address] 2020-09-08 2020-09-08 Refill ELYSIA Wright [id number] 00:00:00 00:00:00 Marika Woodall BUMP GRADER OPERATOR [id number] [facility] 4.2.7.2.686 MATERNAL [id number] & CHILD 107 [facility] 2020-09-08 2020-09-08 [facility] [id number] Univers 00:00:00 00:00:00 Marika C BUMP GRADER OPERATOR [id number] ity of REGIONAL [id number] Prabhu as MATERNAL [phone] [facility] ical & CHILD [address] [place] [address] 2020-08-07 2020-08-07 [facility] [id number] 00:00:00 00:00:00 Marika C BUMP GRADER OPERATOR [id number] REGIONAL [id number] MATERNAL [id number] & CHILD 107 [facility] 2020-08-07 2020-08-07 [facility] [id number] Univers 00:00:00 00:00:00 Marika C BUMP GRADER OPERATOR [id number] ity of REGIONAL [id number] Prabhu as MATERNAL [id number] [facility] ical & CHILD [address] [place] [address] 2020-07-14 2020-07-14 Telephone [facility] [id number] 00:00:00 00:00:00 Marika C BUMP GRADER OPERATOR [id number] REGIONAL [id number] MATERNAL [id number] & CHILD [address] [place] [address] 2020-07-14 2020-07-14 Telephone [facility] [id number] Univers 00:00:00 00:00:00 Marika C BUMP GRADER OPERATOR [id number] ity of REGIONAL 4.2.7.2.686 Prabhu as MATERNAL [id number] [facility] & CHILD [address] [place] [address] 2020-05-22 2020-05-22 Outpatient Austin WRIGHT [facility] [id number] Univers 15:00:00 15:00:00 MARIKA [id number] ity o f [facility] 2020-05-22 2020-05-22 Outpatient R AMANDA [facility] [id number] Univers 15:00:00 15:00:00 MARIKA ity o f [facility] 2020-03-16 2020-03-16 Outpatient R AKINSIPE, [facility] [id number] Univers 14:30:00 14:30:00 MARIKA [id number] ity o f [facility] 2020-03-16 2020-03-16 Outpatient R AKINSIPE, [facility] [id number] Univers 14:30:00 14:30:00 MARIKA ity o [facility] 2020-03-09 2020-03-09 Telephone Jasonsipe, [facility] [id number] 00:00:00 00:00:00 Marika C BUMP GRADER OPERATOR 350.1.13.10 REGIONAL 4.2.7.2.686 MATERNAL [id number] & CHILD [address] [place] [address] 2020-03-09 2020-03-09 Telephone Jasonsipe, [facility] [id number] [facility] 00:00:00 00:00:00 Marika C BUMP GRADER OPERATOR 350.1.13.10 ity of REGIONAL 4.2.7.2.686 Prabhu as MATERNAL [id number] [facility] & CHILD [address] [place] [address] 2020-03-05 2020-03-05 Office [facility] [id number] Univers 15:49:29 16:35:44 Visit Marika C BUMP GRADER OPERATOR 350.1.13.10 ity of REGIONAL 4.2.7.2.686 Prabhu as MATERNAL [id number] [facility] & [address] 2020-03-05 2020-03-05 Outpatient R AKINSIPE, [facility] [id number] Univers 15:45:00 15:45:00 MARIKA ity o f [facility] 2020-03-05 2020-03-05 Outpatient R AKINSIPE, [facility] [id number] Univers 15:45:00 15:45:00 MARIKA ity o f [facility] 2020-03-05 2020-03-05 Outpatient R AKINSIPE, [facility] [id number] Univers 15:45:00 15:45:00 MARIKA ity o f [facility] 2020-03-03 2020-03-03 [facility] [id number] Univers 00:00:00 00:00:00 Marika C BUMP GRADER OPERATOR 350.1.13.10 ity of REGIONAL 4.2.7.2.686 Prabhu as MATERNAL [id number] [facility] & CHILD [address] [place] [address] 2020-03-03 2020-03-03 Telephone [facility] [id number] Univers 00:00:00 00:00:00 [facility] BUMP GRADER OPERATOR 350.1.13.10 ity of REGIONAL 4.2.7.2.686 Prabhu as MATERNAL [id number] [address] 2020-02-25 2020-02-25 Outpatient R AKINSIPE, [facility] [id number]-[id number] Univers 10:00:00 10:00:00 MARIKA [id number] michelley o f [facility] 2020-02-25 2020-02-25 Outpatient R AKINSIPE, [facility] [id number] Univers 10:00:00 10:00:00 MARIKA ity o f [facility] 2020-02-14 2020-02-14 [facility] [id number] Univers 00:00:00 00:00:00 Marika C BUMP GRADER OPERATOR [id number] ity of REGIONAL 4.2.7.2.686 Prabhu as MATERNAL [id number] [address] 2020-01-25 2020-01-25 [facility] [id number] Univers 00:00:00 00:00:00 Marika C BUMP GRADER OPERATOR 350.1.13.10 ity of REGIONAL 4.2.7.2.686 Prabhu as MATERNAL [id number] [facility] & [address] 2020-01-06 2020-01-06 [facility] [id number] Univers 00:00:00 00:00:00 Marika C BUMP GRADER OPERATOR 350.1.13.10 ity of REGIONAL 4.2.7.2.686 Prabhu as MATERNAL [id number] [facility] ical & CHILD [address] [place] [address] 2019-12-09 2019-12-09 Telephone David [facility] [id number] Univers 00:00:00 00:00:00 Britton Avila BUMP GRADER OPERATOR 350.1.13.10 ity of [facility] 4.2.7.2.686 Prabhu as MATERNAL [id number] [facility] & CHILD [address] [place] [address] 2019-05-20 2019-05-20 Office Amanda [facility] [id number] Univers 09:04:53 10:00:45 Visit Marika Jose C BUMP GRADER OPERATOR 350.1.13.10 ity of [facility] 4.2.7.2.686 Prabhu as MATERNAL [phone] [facility] & [address] 2019-05-20 2019-05-20 Orders Doctor LUTHER [id number] Univers 00:00:00 00:00:00 Only Unassigned, KUNAL 350.1.13.10 ity of [employer] [facility] 4.2.7.2.686 Prabhu as [id number] [address] Results Test Description Test Time Test [...] (test code = 3257) Negative - Negative [facility] SPECIFIC [id number] 21:14:00 Test Item Value Reference Range Interpretation [...] (test code = 3257) Negative - Negative [facility] [id number] 21:12:00 Test Item Value Reference Range Interpretation Comments POCT PREG (test code = 1605) Negative On board controls acceptable with C Yes Line (test code = 3574) POCT PREG LOT # (test code = 3575) POCT PREG TEST DATE (test code = 3576) [id number] 21:12:00 Test Item Value Reference Range Interpretation Comments POCT PREG (test code = 1605) Negative On board controls acceptable with C Yes Line (test code = 3574) POCT PREG LOT # (test code = 3575) POCT PREG TEST DATE (test code = 3576) [facility]
[2022-01-16] MEDS ORDERED: Ringers Lactate 1,000 ML IV ONE (03:00)
[2022-01-16] MEDS ORDERED: RSI MEDICATION KIT IV ONE (03:11)
[2022-01-16 03:17] LABS: Protime INR 0.92
[2022-01-16 03:22] LABS: Barbiturates NEGATIVE (NEGATIVE); Benzodiazepines NEGATIVE (NEGATIVE); Cocaine NEGATIVE (NEGATIVE); METHAMPHETAM NEGATIVE (NEGATIVE); Methadone NEGATIVE (NEGATIVE); Opiates POSITIVE (NEGATIVE); Phencyclidine NEGATIVE (NEGATIVE); THC Cannibis NEGATIVE (NEGATIVE)
[2022-01-16 03:33] LABS: ALT/SGPT 16 U/L (12-78); AST/SGOT 22 U/L (15-37); Albumin 4.1 g/dL (3.4-5.0); Alkaline Phosphatase 66 U/L (45-117); BUN Blood Urea Nitrogen 16 mg/dL (7-18); Bicarbonate 23 mmol/L (21-32); Bilirubin Direct < 0.1 mg/dL (0-0.2); Bilirubin Total 0.2 mg/dL (0.2-1.0); Glomerular Filtration Rate 94 ml/min (=/>90); Glucose Level 109 mg/dL (74-106); Potassium 3.4 mmol/L (3.5-5.1); Protein, Total 7.7 g/dL (6.4-8.2); Sodium Level 137 mmol/L (136-145)
[2022-01-16] MEDS ORDERED: propofoL 1,000 MG/100 ML VIAL IV ONE (03:42)
[2022-01-16] MEDS ORDERED: SODIUM BICARB 50 MEQ/50ML VIAL ONE (03:48)
[2022-01-16] MEDS ORDERED: D5W 1,000 ML IV ONE (03:49)
[2022-01-16] MEDS ORDERED: KCL 20 MEQ/100 mL IVPB 100 ML IV ONE (04:07)
[2022-01-16] MEDS ORDERED: LORazepam 2 MG/ML VIAL ONE (04:44)
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
--- NOTE | 2022-01-16 05:38 | ER ---
Nurse's Notes [facility] Name: Jesenia Claire Age: 36 yrs Sex: Female : 1985 Arrival Date: 01/16/2022 Time: 02:23 Bed 14 Private MD: Diagnosis: Benadryl overdose;Suicide attempt;Seizure;Hypokalemia;Anemia Presentation: 01/16 05:23 Acuity: GAURI 2 tw5 05:53 Chief complaint: Spouse and/or significant other states: Significant other stated that ll3 patient consumed 98 soft gel diphenhydramine shortly after they got into an argument. Coronavirus screen: Vaccine status: unknown. Ebola Screen: Patient negative for fever greater than or equal to 101.5 degrees Fahrenheit, and additional compatible Ebola Virus Disease symptoms Patient denies exposure to infectious person. No symptoms or risks identified at this time. Initial Sepsis Screen: Does the patient meet any 2 criteria? Altered Mental Status. HR > 90 bpm. Yes Does the patient have a suspected source of infection? No. Patient's initial sepsis screen is negative. Risk Assessment: Do you want to hurt yourself or someone else? Patient reports desire/thoughts of hurting themselves or someone else. Provider notified. Note consumed soft gels 30 min prior to arrival. Onset of symptoms. 05:53 Method Of Arrival: Wheelchair ll3 Triage Assessment: 06:35 General: Appears well nourished, Behavior is unresponsive. 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 - Social history:: Smoking status: unknown. Screenin:34 Abuse screen: UNABLE TO OBTAIN PATIENT UNCONSCIOUS. Nutritional screening: No deficits ag7 noted. Tuberculosis screening: No symptoms or risk factors identified. Fall Risk No fall in past 12 months (0 pts). No secondary diagnosis (0 pts). No IV (0 pts). Ambulatory Aid- None/Bed Rest/Nurse Assist (0 pts). Gait- Normal/Bed Rest/Wheelchair (0 pts) Mental Status- Oriented to own ability (0 pts). Total [place] Fall Scale indicates No Risk (0-24 pts). Assessment: 02:53 General: poison controlled called by MARCUS CHAVARRIA. tw5 06:29 Reassessment: 0623 REPORT GIVEN TO FILIPPO [facility]UTLED[facility], PATIENT TRANSFER VIA ag7 LIFE FLIGHT VENT SUPPORT PEEP 5, FI02 28%-TV 320-RR 18, Propolfol 20 mcg/kg/min, NA HC03 \\T\\ 125 MG/HR. Psych: 06:35 Objective: Patient is Speech is absent, Affect is. Interventions: Removed personal ag7 items and placed in bag. Patient placed in hospital gown. Searched person for dangerous items. Urine collected and sent for urine drug test. Patient reassessed during use of restraints. Patient is physically safe. Safety Checks: Personal items have been removed. Door is open. Visitors are present. Commitment: PATIENT RECEIVED UNCONSCIOUS UNABLE TO OBTAIN SUICIDE ASSESSMENT. 06:39 Patient uses tobacco UNKNOWN. ag7 06:42 [place] Suicide Severity Screening: "In the past month, have you actually had any ag7 thoughts of killing yourself?". Overdose: 06:35 [place] Suicide Severity Screening: "In the past month, have you wished you were ag7 or wished you could go to sleep and not wake up?" Patient responds "yes." Based off client's responses, additional C-SSRS screening questions required. Vital Signs: 03:48 BP 123 / 85; Pulse 172; Resp 18; Pulse Ox 100% on R/A; Weight 74.84 kg; Height 5 ft. 5 ag7 in. (165.10 cm); 04:00 BP 108 / 82; Pulse 144; Resp 19 A; Pulse Ox 100% on ETT vent; ag7 04:30 BP 103 / 82; Pulse 144; Resp 19 A; Pulse Ox 99% on ETT vent; ag7 04:56 Temp 98.9(R); ag7 05:00 BP 109 / 78; Pulse 149; Resp 20 A; Pulse Ox 97% on ETT vent; ag7 06:01 BP 100 / 69; Pulse 125; Resp 19 A; Pulse Ox 98% on ETT vent; ag7 03:48 Body Mass Index 27.46 (74.84 kg, 165.10 cm) ag7 [place] Coma Score: 02:52 Eye Response: to pain(2). Verbal Response: none(1). Motor Response: localizes pain(5). tw5 Total: 8. ED Course: 02:23 Patient arrived in ED. bp1 02:39 Enrique Gurrola DO is Attending Physician. ms3 02:52 Initial lab(s) drawn, by me, sent to lab. Urine collected: Saldana catheter specimen, tw5 COVID swab sent to lab. Saldana cath inserted, using sterile technique, 16 Fr., by me, balloon inflated, to gravity drainage, urine specimen collected. Inserted saline lock: 20 gauge in left antecubital area, using aseptic technique. Blood collected. Patient maintains SpO2 saturation greater than 95% on room air. 02:52 Patient has correct armband on for positive identification. Placed in gown. Bed in low tw5 position. Call light in reach. Side rails up X2. Seizure precautions initiated. Client placed on continuous cardiac and pulse oximetry monitoring. NIBP monitoring applied. Door closed. Noise minimized. Lights dimmed. Moved to private room. Warm blanket given. Verbal reassurance given. 02:54 Acetaminophen Sent. tw5 02:54 Basic Metabolic Panel Sent. tw5 02:54 CBC with Diff Sent. tw5 02:54 Salicylate Sent. tw5 02:54 ETOH Level Sent. tw5 02:54 Hepatic Function Sent. tw5 02:54 PT-INR Sent. tw5 02:54 Ptt, Activated Sent. tw5 03:45 Shannon Kolb, RN is Primary Nurse. ag7 04:15 1st initial call for Transfer to [facility]. Spoke to Patria Ruiz. wm 04:18 CXR XRAY In Process Unspecified. EDMS 05:06 Patria called back to speak to Dr. Marcus Umanzor regarding Pt status and to answer questions. 05:23 Triage completed. tw5 05:28 2nd attempt at initiating Pt, this time to [facility], spoke to Kenyetta Lazcano. wm 05:35 Patria called back with acceptance of transfer, and accepting Physician is David Oro.wm 05:36 Called Luis F back to cancel transfer and spoke to Elinor. wm 06:28 Patient transferred, IV remains in place. ag7 06:35 Pt left by Luis F Larson. wm 06:40 INTUBATION. ag7 06:40 Patient UNKNOWN. ag7 Administered Medications: 03:00 Drug: Lactated Ringers Solution 1000 ml Route: IV; Rate: 4000 ml/hr; Site: right tw5 antecubital; 03:43 CANCELLED (Other Intervention Used): Sodium Bicarbonate 2 amp IVP once; (50 mL); equals la1 50 mEq 03:45 Drug: Propofol 5 mcg/kg/min Route: IV; Rate: calculated rate; Site: right wrist; ag7 04:15 Follow up: Response: No adverse reaction ag7 03:52 Drug: Sodium Bicarbonate 2 amp Route: IVP; Site: left antecubital; ag7 04:30 Follow up: Response: No adverse reaction; Marked relief of symptoms ag7 03:55 Drug: D5W 1000 ml, Sodium Bicarbonate 150 mEq Route: IV; Rate: 125 ml/hr; Site: left ag7 antecubital; 04:30 Follow up: Response: No adverse reaction; Marked relief of symptoms ag7 04:11 Drug: Potassium Chloride 20 mEq Route: IV; Rate: calculated rate; Site: left ag7 antecubital; 06:08 Follow up: Response: No adverse reaction; IV Status: Completed infusion ag7 04:51 Drug: Ativan (LORazepam) 2 mg Route: IVP; Site: left antecubital; ag7 05:20 Follow up: Response: No adverse reaction ag7 06:08 Drug: Magnesium Sulfate 1 grams Route: IVPB; Infused Over: 1 hrs; Site: left ag7 antecubital; 06:43 Follow up: Response: No adverse reaction ag7 Medication: 06:39 VIS not applicable for this client. ag7 Outcome: 05:37 ER care complete, transfer ordered by . ms3 06:27 Transferred by helicopter Transfer form completed. X-rays sent w/ patient. ag7 06:27 critical 06:35 Patient left the ED. tw5 Signatures: Dispatcher [employer] EDMS Enrique Gurrola DO DO ms3 Lina Vázquez Wendy wm Wood, Tiffany tw5 Janine Neville RN RN ll3 Shannon Kolb RN RN ag7 [facility] Corrections: (The following items were deleted from the chart) 05:23 04:00 BP 108 / 82; Pulse 144bpm; Resp 19bpm; Assisted; Pulse Ox 100%; ag7 ag7
[2022-01-16 05:45] LABS: Arterial Blood Carboxyhemoglob 0.9 % (0-1.5); Blood Gas Oxyhemoglobin 96.8 % (94-97)
[2022-01-16] MEDS ORDERED: MAGNESIUM SULFATE 1 gm IVPB 1 GM/100 ML BAG IV ONE (05:54)
[2022-01-16 06:46] VITALS: TEMP 98.9
[2022-01-16 06:53] VITALS: BP 100/69; O2SAT 98
--- NOTE | 2022-01-16 14:45 | EKG ---
Test Date: 2022-01-16 Test Time: 02:40:28 Grants Director: MEASUREMENT RESULTS: Intervals: Rate: 148 OR: 122 QRSD: 94 QT: 332 QTc: 521 [place]: P: 53 OR: 122 QRS: 30 T: 67 INTERPRETIVE STATEMENTS: Sinus tachycardia Nonspecific T wave abnormality Abnormal ECG Compared to ECG 07/08/2014 13:16:15 T-wave abnormality now present Sinus rhythm no longer present Electronically Signed On 01-16-22 14:44:51 CDT by Saroj Martinez
--- NOTE | 2022-01-17 10:06 | EKG ---
Test Date: 2022-01-16 Test Time: 03:40:47 Principal Java Software Engineer: MEASUREMENT RESULTS: Intervals: Rate: 176 VT: 112 QRSD: 146 QT: 270 QTc: 462 [place]: P: VT: 112 QRS: 11 T: 54 INTERPRETIVE STATEMENTS: Sinus tachycardia Right bundle branch block Abnormal ECG Compared to ECG 01/16/2022 02:40:28 Right bundle-branch block now present T-wave abnormality no longer present Electronically Signed On 01-17-22 10:02:47 CDT by Luis Noble
--- NOTE | 2022-01-17 11:10 | RAD REPORT ---
EXAM DESCRIPTION: RAD - Chest Single View - 01/16/2022 4:16 am CLINICAL HISTORY: Intubation COMPARISON: None. TECHNIQUE: XR CHEST 1 VIEW 01/16/2022 3:39 AM CDT FINDINGS: Cardiac silhouette is normal in size. There is mild left perihilar and possibly right basi lar airspace disease. There is no pleural effusion. There is no pneumothorax. There are no acute osse ous findings. Endotracheal tube tip is in the midtrachea. NG tube tip is in the stomach. IMPRESSION: Suspect mild areas of bilateral pneumonia. Electronically signed by: Manuel Garber MD 01/16/2022 5:17 AM CDT Due to temporary technical issues with the PACS/Fluency reporting system, reports are being signed by the in house radiologist without review as a courtesy to ensure prompt reporting. The interpreting r adiologist is fully responsible for the content of the report.
== END 2022-01-16 06:35 | disposition short-term general hospital (02) ==
LOC: ER 02:23
PROC: 0BH17EZ Insertion of Endotracheal Airway into Trachea, Via Natural or Artificial Opening (ICD-10-PCS; principal; 2022-01-16)
PROC: 5A1935Z Respiratory Ventilation, Less than 24 Consecutive Hours (ICD-10-PCS; 2022-01-16)
DX: T45.0X2A Poisoning by antiallergic and antiemetic drugs, intentional self-harm, initial encounter (principal); E87.6 Hypokalemia; R56.9 Unspecified convulsions; D64.9 Anemia, unspecified; Z20.822 Contact with and (suspected) exposure to COVID-19
CPT/HCPCS: 31500; 36415; 51702; 71045; 80048; 80076; 80307; 80320; 80329; 82805; 82947; 83735; 85610; 85730; 93005; 94002; 99285; J0330; J2704; J3475; J3480; J7120; U0003